=== PATIENT | female | born 1990 | race Caucasian/White ===

== ENCOUNTER 2016-08-01 18:11 | Emergency (ER) | payer OTHER ==
[~2016-08-01 18:11] MED LIST: AMOXIL500 MG PO; ATENOLOL25 M1 PO; CIPRO 500MG TA500 MG PO; CYCLOBENZAPRINE10 M1 PO; DICLEGIS 10 MG-1 TCP PO; ENDOCET 325 MG-1 TA1 PO; FERRALET 901 TAB PO; FERROUS GLUCON300 MG PO; KETOROLAC TROME10 M1 PO; KLOR-CON 1010 MEQ PO; MOTRIN 800MG T800 MG PO; PERCOCET 325 MG1 TA2 PO; PERCOCET 5-3251 EACH PO; PRENATA CHEWAB1 EACH PO; PRENATAL1 TA2 PO; REGLAN10 MG PO; XULANE PATCH1 EACH TOP; ZOFRAN 4 MG TABL4 MG PO; ZOFRAN4 M1 SL; ZOFRAN4 M2 PO; ZOFRAN4 M2 SL
[2016-08-01 19:18] LABS: ABSOLUTE BASOPHIL COUNT 0 /CUMM (0.0-0.2); ABSOLUTE EOSINOPHIL COUNT 0.1 /CUMM (0.0-0.7); ABSOLUTE GRANULOCYTE CT 5.8 /CUMM (1.4-6.5); ABSOLUTE LYMPH COUNT 1.3 /CUMM (1.2-3.4); ABSOLUTE MONOCYTE COUNT 0.5 /CUMM (0.10-0.60); BASOPHIL % 0.1 % (0.0-2.0); EOSINOPHIL % 0.7 % (0-5); GRANULOCYTE % 75.5 % (42.2-75.2); HEMATOCRIT 23.5 % (37-47); MEAN CORPUSCULAR HGB 23.5 PG (27.0-31.0); MEAN CORPUSCULAR HGB CONC 32.2 G/DL (33.0-37.0); MEAN CORPUSCULAR VOLUME 72.9 FL (81.0-99.0); MEAN PLATELET VOLUME 6.6 FL (7.4-10.4); PLATELET COUNT 297 /CUMM (130-400); RBC DISTRIBUTION WIDTH 16.8 % (11.5-14.5); RED BLOOD CELL CT 3.22 /CUMM (4.20-5.40); WHITE BLOOD CELL COUNT 7.7 /CUMM (4.8-10.8)
--- NOTE | 2016-08-01 19:46 | ED GI/GU/ABDOMINAL COMPLAINT ---
History of Present Illness General Chief Complaint: Abdominal Pain/Flank Pain Stated Complaint: LEFT FLANK PAIN, HX KIDNEY STONES Source: patient Exam Limitations: no limitations Vital Signs & Intake/Output Vital Signs & Intake/Output Vital Signs Date Time Temp Pulse Resp B/P Pulse O2 O2 Flow FiO2 Ox Delivery Rate 08/01 2132 98.2 88 16 109/70 98 Room Air Room Air 08/01 1820 97.8 98 17 109/70 98 Room Air Room Air Allergies Coded Allergies: NO KNOWN ALLERGIES (06/13/15) Triage Note: PT TO TRIAGE WITH LEFT FLANK PAIN FOR THE PAST FEW DAYS. PT SAW UROLOGIST YESTERDAY AND WAS TOLD SHE HAS A STONES IN THE TOP OF HER URETER. PT STATES PAIN IS NOW OUT OF CONTROL. PT ALSO STAtES SHE HAS PAIN TO HER GROIN STARTING THIS MORNING THAT IS INTERMITTENT. PT IS ALSO ABOTU 20 WEEKS , AND DUE November, A2. PT DENIES VAGINAL BLEEDING. DENIES CONTRACTIONS. CALLED [facility] NOW AND DR LANE STATES SHE WANTS HER TO BE SEEN HERE FIRST AND HAS FHT DONE. PT STATES SHE FEELS THE BABY MOVING. Triage Nurses Notes Reviewed? yes ? Y Is pt currently ? No HPI: This patient is a 25-year-old female who is approximately 20 weeks gestation who presented to the emergency department today for evaluation of left flank pain. Patient reported that approximately 4 weeks ago she had an ultrasound showing a kidney stone. Yesterday she saw Dr. Wahl who reported that, "the stone was at the top of the tube." The patient reported that she woke up this morning at bilateral groin pain. She reported that the pain has been worsening throughout the day. She does have left flank pain which is nonradiating and throbbing. It is intermittent and gets up to a 7 out of 10. The patient reported some nausea, but no vomiting. She denied any urinary burning, urgency, frequency, or blood in the urine. No chest pain, shortness of breath, fevers, chills. The patient denied any vaginal discharge or vaginal bleeding. The baby is moving normally. No contractions noted. No leakage of fluid. (SURINDER FONSECA,REYNA) Reconcile Medications Doxylamine/Pyridoxine HCl (Danna Edmonds 10-10 MG Tablet) 10 MG-10 MG TABLET. 2 TAB PO QPM N/V (Reported) Doxylamine/Pyridoxine HCl (Diclegis Dr 10-10 MG Tablet) 10 MG-10 MG TABLET.DR 1 TAB PO QAM N/V (Reported) Metoclopramide HCl (Reglan) 10 MG TABLET 1 TAB PO 4 TIMES/DAY GI (Reported) 30 minutes before meals and bedtime Ondansetron HCl 4 MG TABLET 1 TAB PO Q6P PRN N/V (Reported) Vit37/Iron/Folic Acid (Prenata Chewable Tablet) 1 EACH TAB.CHEW 1 TAB PO DAILY (Reported) (THOMAS GIL) Past History Travel History Traveled to [place] past 21 day No Medical History Any Pertinent Medical History? see below for history Neurological: NONE EENT: otitis media, TUBES IN EARS Cardiovascular: hypertension, TACHY Respiratory: NONE Gastrointestinal: NONE Hepatic: NONE Renal: nephrolithiasis, UTI Musculoskeletal: NONE Psychiatric: anxiety, depression Endocrine: NONE Blood Disorders: NONE Cancer(s): NONE INSPECTOR FUEL HOSE/Reproductive: A2 MISCARIAGE Surgical History Surgical History: ABORTIONS Psychosocial History Who do you live with Family What is your primary language Surinamese Tobacco Use: Never used Family History Hx Contributory? No (REYNA CADENA PA-C) Review of Systems Review of Systems Constitutional: Reports: no symptoms. EENTM: Reports: no symptoms. Respiratory: Reports: no symptoms. Cardiovascular: Reports: no symptoms. GI: Reports: see HPI. Genitourinary: Reports: no symptoms. Musculoskeletal: Reports: see HPI. Skin: Reports: no symptoms. Neurological/Psychological: Reports: no symptoms. All Other Systems: Reviewed and Negative (REYNA CADENA PA-C) Physical Exam Physical Exam Gastrointestinal: normal bowel sounds, soft, non-tender, no organomegaly, no rebound or guarding. No McBurney's point tenderness. Negative Rovsing sign. Negative Westfall sign. No masses appreciated. Nondistended Comments: Well-developed well-nourished person in no acute distress HEENT: Normal EENT exam, moist mucous membranes Neck: Supple Back: Left-sided CVA tenderness. No midline tenderness Cardiovascular: Regular rate and rhythm with no murmurs Respiratory: No respiratory distress. Breath sounds clear to auscultation bilaterally Extremity: Normal and Equal pulses Neuro: Alert oriented x3, motor sensory normal, cranial nerves II through XII grossly intact. Skin: No appreciable rash on exposed skin, skin is warm and dry. Psych: Mood and affect is normal, memory and judgment is normal. Core Measures ACS in differential dx? No Severe Sepsis Present: No Septic Shock Present: No (SURINDER FONSECA,REYNA) Progress Differential Diagnosis: appendicitis, biliary colic, bowel obstruction, colon cancer, cholecystitis, diverticulitis, ectopic , endometritis, gastritis, hepatitis, ischemic bowel, inflamm bowel dis, intrauterine , kidney stone, ovarian cyst, ovarian torsion, pancreatitis, PID/cervicitis, PUD/ GERD, perforated viscous, threatened AB, UTI/pyelo Plan of Care: Orders Procedure Date/time Status HUMAN BETA HCG TITRE 08/01 1904 Complete CULTURE,URINE 08/01 1856 Active URINALYSIS 08/01 1856 Complete COMPREHENSIVE METABOLIC PANEL 08/01 1856 Complete CBC WITHOUT DIFFERENTIAL 08/01 1856 Complete Laboratory Tests 08/01/161951: Urine Color STRAW, Urine Clarity CLEAR, Urine pH 7.0, Ur Specific [place] 1.015, Urine Protein NEG, Urine Ketones NEG, Urine Nitrite NEG, Urine Bilirubin NEG, Urine Urobilinogen 2.0 H, Ur Leukocyte Esterase NEG, Ur Microscopic EXAM NOT REQUIRED, Urine Hemoglobin NEG, Urine Glucose NEG 08/01/161908: Beta HCG, Quant Cancelled 08/01/161904: Anion Gap 10, Estimated GFR > 60, BUN/Creatinine Ratio 10.0, Glucose 72, Calcium 8.5, Total Bilirubin 0.4, AST 16, ALT 23, Alkaline Phosphatase 51, Total Protein 6.2 L, Albumin 3.4 L, Globulin 2.8, Albumin/Globulin Ratio 1.2, Beta HCG, Quant 33728.0, CBC w Diff NO MAN DIFF REQ, RBC 3.22 L, MCV 72.9 L, MCH 23.5 L , RDW 16.8 H, MPV 6.6 L, Gran % 75.5 H, Lymphocytes % 16.9 L, Monocytes % 6.8, Eosinophils % 0.7, Basophils % 0.1, Absolute Granulocytes 5.8, Absolute Lymphocytes 1.3, Absolute Monocytes 0.5, Absolute Eosinophils 0.1, Absolute Basophils 0, PUBS MCHC 32.2 L Microbiology 08/02 1951 URINE ROUT: Urine Culture - RECD Reevaluation the patient patient still had mild pain however declined any other pain medications and was Tylenol was administered. Patient had ultrasound findings consistent with intrauterine however no acute findings were noted otherwise. Discussed results with patient patient was strongly advised to follow-up with SITE PROJECT MANAGER and urology tomorrow. Upon discharge patient looks well no apparent distress and will comply with discharge instructions and had no questions. Discussed disposition plan with Dr. JAVIER who agrees (THOMAS GIL) Initial ED EKG: none Hand-Off Endorsed To: THOMAS GIL Endorsed Time: 1999 Pending: labs, ultrasound (SURINDER FONSECA,REYNA) Comments: PATIENT: OLGA GILLESPIE PRESENT AGE: 25 PATIENT ACCOUNT NO: [id number] : 88 LOCATION: [facility] ORDERING PHYSICIAN: REYNA CADENA PA-C SERVICE DATE: 08/01/16 EXAM TYPE: US - US-RENAL/KIDNEY EXAMINATION: US RETROPERITONEAL COMPLETE (RENAL) CLINICAL INFORMATION: Left flank pain.. COMPARISON: 06/27/2016. TECHNIQUE: Real-time imaging of the kidneys and bladder. FINDINGS: RIGHT KIDNEY: 9.1 x 4.8 x 5.7 cm (SAG x AP x TRV). The kidney is normal in size, contour, and echogenicity. Renal cortical thickness is normal. No hydronephrosis or focal parenchymal lesions. There is a 0.3 cm lower pole calculus, as seen on the prior ultrasound. LEFT KIDNEY: 10.9 x 5 x 5.6 cm (SAG x AP x TRV). The kidney is normal in size, contour, and echogenicity. Renal cortical thickness is normal. No calculi or focal parenchymal lesions. No hydronephrosis. BLADDER: Bladder is decompressed. Bilateral ureteral jets are not demonstrated. IMPRESSION: No hydronephrosis. Redemonstration of tiny nonobstructing right lower pole calculus. PATIENT: OLGA GILLESPIE PRESENT AGE: 25 PATIENT ACCOUNT NO: [id number] : 88 LOCATION: [facility] ORDERING PHYSICIAN: REYNA CADENA PA-C SERVICE DATE: 08/01/16 EXAM TYPE: US - US- VIABILITY EXAMINATION: ULTRASOUND PELVIC, , OB limited CLINICAL INFORMATION: Flank pain. . COMPARISON: None. TECHNIQUE: Transabdominal grayscale ultrasound Spectral Doppler and color Doppler exam was utilized. LMP: 03/02/2016. Gestational age 21 weeks 5 days. KALPESH 12/07/2016 FINDINGS: UTERUS: Single intrauterine gestation. There is motion and cardiac activity. heart rate 149 bpm. Lie is transverse. Placenta is anterior. biometrics: 1. Biparietal diameter. 4.91 cm. 20 weeks 6 days. 2. OFD. 6.1 cm. 20 weeks 3 days. 3. Head circumference. 18.14 cm. 20 weeks 4 days. 4. Abdominal circumference. 17.36 cm. 22 weeks 3 days. 5. Femur length. 3.52 cm. 21 weeks 1 day. Ultrasound gestational age by this study is 29 weeks 2 days. KALPESH 12/10/2016. Estimated weight 437 g +/- 60 4 g. LMP percentile: 39% Appropriate amount of amniotic fluid for gestational age. Cervical length 3.4 cm. ADNEXA: Ovary is not identified. No adnexal abnormality. Cul-de-sac: No Fluid IMPRESSION: Single intrauterine gestation with estimated gestational age by ultrasound 21 weeks 2 days. KALPESH 12/10/2016. (THOMAS GIL) Departure Departure Condition: Stable Referrals: DANIELITO BALDWIN DO (PCP/Family) Departure Forms: Customer Survey General Discharge Information (SURINDER FONSECA,REYNA) Departure Disposition: HOME OR SELF CARE Clinical Impression Primary Impression: Left flank pain Additional Instructions: As discussed if needed begin [id number] Tylenol for pain and inflammation. Follow-up tomorrow with your SITE PROJECT MANAGER and your urologist for further evaluation treatment. If symptoms worsen return to the emergency room (THOMAS GIL) PA/BELT MAKER Co-Sign Statement Statement: ED Attending supervision documentation- x I saw and evaluated the patient. I have also reviewed all the pertinent lab results and diagnostic results. I agree with the findings and the plan of care as documented in the PA's/BELT MAKER's documentation. [] I have reviewed the ED Record and agree with the PA's/BELT MAKER's documentation. [] Additions or exceptions (if any) to the PAs/BELT MAKER's note and plan are summarized below: [] (CONCEPCION COLBY,ALAN)
[2016-08-01] MEDS ORDERED: DICLEGIS DR 101 EACH PO ×2 (20:39)
[2016-08-01] MEDS ORDERED: ONDANSETRON HCL4 MG PO (20:40)
[2016-08-01] MEDS ORDERED: REGLAN10 M1 PO (20:40)
--- NOTE | 2016-08-01 20:53 | ULTRASOUND REPORT ---
EXAMINATION: US RETROPERITONEAL COMPLETE (RENAL) CLINICAL INFORMATION: Left flank pain.. COMPARISON: 06/27/2016. TECHNIQUE: Real-time imaging of the kidneys and bladder. FINDINGS: RIGHT KIDNEY: 9.1 x 4.8 x 5.7 cm (SAG x AP x TRV). The kidney is normal in size, contour, and echogenicity. Renal cortical thickness is normal. No hydronephrosis or focal parenchymal lesions. There is a 0.3 cm lower pole calculus, as seen on the prior ultrasound. LEFT KIDNEY: 10.9 x 5 x 5.6 cm (SAG x AP x TRV). The kidney is normal in size, contour, and echogenicity. Renal cortical thickness is normal. No calculi or focal parenchymal lesions. No hydronephrosis. BLADDER: Bladder is decompressed. Bilateral ureteral jets are not demonstrated. IMPRESSION: No hydronephrosis. Redemonstration of tiny nonobstructing right lower pole calculus.
--- NOTE | 2016-08-01 20:58 | ULTRASOUND REPORT ---
EXAMINATION: ULTRASOUND PELVIC, , OB limited CLINICAL INFORMATION: Flank pain. . COMPARISON: None. TECHNIQUE: Transabdominal grayscale ultrasound Spectral Doppler and color Doppler exam was utilized. LMP: 03/02/2016. Gestational age 21 weeks 5 days. KALPESH 12/07/2016 FINDINGS: UTERUS: Single intrauterine gestation. There is motion and cardiac activity. heart rate 149 bpm. Lie is transverse. Placenta is anterior. biometrics: 1. Biparietal diameter. 4.91 cm. 20 weeks 6 days. 2. OFD. 6.1 cm. 20 weeks 3 days. 3. Head circumference. 18.14 cm. 20 weeks 4 days. 4. Abdominal circumference. 17.36 cm. 22 weeks 3 days. 5. Femur length. 3.52 cm. 21 weeks 1 day. Ultrasound gestational age by this study is 29 weeks 2 days. KALPESH 12/10/2016. Estimated weight 437 g +/- 60 4 g. LMP percentile: 39% Appropriate amount of amniotic fluid for gestational age. Cervical length 3.4 cm. ADNEXA: Ovary is not identified. No adnexal abnormality. Cul-de-sac: No Fluid IMPRESSION: Single intrauterine gestation with estimated gestational age by ultrasound 21 weeks 2 days. KALPESH 12/10/2016.
[2016-08-01 21:32] VITALS: BP 109/70
== END 2016-08-01 21:33 ==
LOC: ERH 18:11
PROVIDERS: Physician Assistant
DX: O26.92 Pregnancy related conditions, unspecified, second trimester (principal); R10.32 Left lower quadrant pain
CPT/HCPCS: 76775; 81003; 87086; 96374; 96375; J0131; J2405

== ENCOUNTER 2016-08-03 12:00 | Emergency (ER) | payer OTHER ==
[~2016-08-03] VITALS: Ht 152.4 cm; Wt 64.9 kg
[~2016-08-03 12:00] MED LIST changes: +DICLEGIS DR 101 EACH PO; +ONDANSETRON HCL4 MG PO; +REGLAN10 M1 PO
--- NOTE | 2016-08-03 12:29 | ED GI/GU/ABDOMINAL COMPLAINT ---
History of Present Illness General Chief Complaint: Female Urogenital Problems Stated Complaint: 22 WEEKS PREG,?KIDNEY STONE,CAN'T URINATE Source: patient Exam Limitations: no limitations Allergies Coded Allergies: NO KNOWN ALLERGIES (06/13/15) Reconcile Medications Anusol Hc (Anusol-Hc) 25 MG SUPP.RECT 1 SUP RC BID HEMORRHOID Doxylamine/Pyridoxine HCl (Diclegis Dr 10-10 MG Tablet) 10 MG-10 MG TABLET.DR 2 TAB PO QPM N/V (Reported) Doxylamine/Pyridoxine HCl (Diclegis Dr 10-10 MG Tablet) 10 MG-10 MG TABLET.DR 1 TAB PO QAM N/V (Reported) Lidocaine (Recticare) 5 % CREAM..G. 1 YOVANI TOP BID PRN PAIN Metoclopramide HCl (Reglan) 10 MG TABLET 1 TAB PO 4 TIMES/DAY GI (Reported) 30 minutes before meals and bedtime Ondansetron HCl 4 MG TABLET 1 TAB PO Q6P PRN N/V (Reported) Vit37/Iron/Folic Acid (Prenata Chewable Tablet) 1 EACH TAB.CHEW 1 TAB PO DAILY (Reported) Triage Note: TRIAGE: 25 Y/O FEMALE PRESENTS, 22 WEEKS . - C/O KIDNEYS LAST WEEK. NOW C/O HEMORRHOIDS. DIFFICULTY URINATING. CONTACTED CHILDBIRTH RN EDDIE GAYLE TO BE SEEN IN EMERGENCY DEPARTMENT. PATIENT DENIES VAGINAL BLEEDING, ABDOMINAL CRAMPING. REPORTS + MOVEMENT CONTINUES. [facility] HAS REPORTED TO CONTACT THEIR DEPARTMENT FOR HEART TONES. Triage Nurses Notes Reviewed? yes ? Y Is pt currently ? No HPI: This patient is a 25-year-old female who presented to the emergency department today for evaluation of multiple complaints. The patient reported that yesterday she began having pain and pressure in her rectum. The patient reported that she has a history of hemorrhoids and feels like this pain is the same. The pain is worse with certain movements and when she is sitting down. The fingertips are 10 out of 10 and is throbbing. The pain is nonradiating and constant since onset. The patient also reported that she is feeling pressure on her bladder. She reported that she feels like she has to urinate but has been having difficulty doing so. She reported that the only time she can urinate is when she is sitting in a bath. The patient denied any urinary burning, urgency, frequency, or blood in the urine. She denied any back pain or flank pain. She reported that she has been nauseous and vomiting which she attributes to the pain. No abdominal pain, chest pain, difficulty breathing, fevers, or chills. (REYNA CADENA PA-C) Vital Signs & Intake/Output Vital Signs & Intake/Output Vital Signs Date Time Temp Pulse Resp B/P Pulse O2 O2 Flow FiO2 Ox Delivery Rate 08/03 1346 96.0 94 20 100/55 96 Room Air 03 1205 97.4 112 18 121/77 100 Room Air Room Air ED Intake and Output 08/04 0000 08/03 1200 Intake Total Output Total Balance Patient 143 lb Weight Past History Travel History Traveled to [place] past 21 day No Medical History Any Pertinent Medical History? see below for history Neurological: NONE EENT: otitis media, TUBES IN EARS Cardiovascular: hypertension, TACHY Respiratory: NONE Gastrointestinal: NONE Hepatic: NONE Renal: nephrolithiasis, UTI Musculoskeletal: NONE Psychiatric: anxiety, depression Endocrine: NONE Blood Disorders: NONE Cancer(s): NONE SURGERY MANAGER/Reproductive: A2 MISCARIAGE Surgical History Surgical History: ABORTIONS Psychosocial History Who do you live with Family What is your primary language Bengali Tobacco Use: Current Daily Use Daily Tobacco Use Amount/Type: => 5 Cigarettes daily ETOH Use: denies use Illicit Drug Use: denies illicit drug use Family History Hx Contributory? No (REYNA CADENA PA-C) Review of Systems Review of Systems Constitutional: Reports: no symptoms. EENTM: Reports: no symptoms. Respiratory: Reports: no symptoms. Cardiovascular: Reports: no symptoms. GI: Reports: see HPI. Genitourinary: Reports: see HPI. Musculoskeletal: Reports: no symptoms. Skin: Reports: no symptoms. Neurological/Psychological: Reports: no symptoms. All Other Systems: Reviewed and Negative (REYNA CADENA PA-C) Physical Exam Physical Exam Gastrointestinal: GRAVID. UTERUS PALPABLE APPROXIMATELY 1 CM ABOVE THE UMBILICUS. NONTENDER Comments: Well-developed well-nourished person who is tearful HEENT: Normal EENT exam, moist mucous membranes Back: Normal gait. No CVA tenderness Respiratory: Speaking sentences Rectal: External, nonthrombosed hemorrhoid at the 5 o'clock position Extremity: Normal equal pulses Neuro: Alert oriented x3, cranial nerves II through XII grossly intact. Skin: No appreciable rash on exposed skin, skin is warm and dry. Psych: Mood and affect is normal, memory and judgment is normal. Core Measures ACS in differential dx? No Severe Sepsis Present: No Septic Shock Present: No (REYNA CADENA PA-C) Progress Differential Diagnosis: ectopic , endometritis, hemorrhoids, inflamm bowel dis, intrauterine , kidney stone, PID/cervicitis, threatened AB, UTI/pyelo Initial ED EKG: none Comments: 08/03/2016 12:44:26 PM: [facility] with the patient's bedside to evaluate heart tones. heart rate in the 140s. Patient is currently attempting to urinate on her own. Bladder scanner with variable results between 200 AND 110. I evaluated this patient 2 days ago and obtained a viability ultrasound which was normal as well as a renal ultrasound which was unremarkable. All blood work was stable at that time. Discussed this patient with Dr. JAVIER who is in agreement with the plan to obtain a urine sample from this patient and manage her symptomatically at this time. 08/03/2016 12:54:41 PM: Patient declined straight catheterization and was able to void on her own. Urinalysis sent to the lab. (REYNA CADENA PA-C) Plan of Care: Orders Procedure Date/time Status CULTURE,URINE 08/03 1254 Active URINALYSIS 08/03 1248 Complete Laboratory Tests 08/03/16 1249: Urinalysis LIGHT H, Urine Color YEL, Urine Clarity HAZY H, Urine pH 7.5, Ur Specific [place] 1.015, Urine Protein NEG, Urine Ketones NEG, Urine Nitrite NEG, Urine Bilirubin NEG, Urine Urobilinogen 1.0, Ur Leukocyte Esterase NEG, Ur Microscopic SEDIMENT EXAMINED, Urine RBC 1-3, Urine WBC 1-3 H, Ur Epithelial Cells MOD H, Urine Bacteria MOD H, Granular Casts RARE H, Urine Mucus RARE, Urine Hemoglobin TRACE-INTACT, Urine Glucose NEG Microbiology 08/03 1323 URINE ROUT: Urine Culture - RES Departure Departure Disposition: HOME OR SELF CARE Condition: Stable Clinical Impression Primary Impression: Hemorrhoid Qualifiers: Hemorrhoid type: perianal venous thrombosis Qualified Code: K64.5 - Perianal venous thrombosis Referrals: DANIELITO BALDWIN DO (PCP/Family) Additional Instructions: Use topical medication as directed for pain. Use steroid suppository as directed. Use sitz bath. Use over the counter Dulcolax. Please follow-up with your BRIDGE CRANE OPERATOR. Return for any worsening symptoms. Departure Forms: Customer Survey General Discharge Information Prescriptions: Current Visit Scripts Anusol Hc (Anusol-Hc) 1 SUP RC BID #28 SUP Lidocaine (Recticare) 1 YOVANI TOP BID PRN PAIN #1 BOT (SURINDER FONSECA,REYNA) PA/ACCOUNT LIAISON Co-Sign Statement Statement: ED Attending supervision documentation- x I saw and evaluated the patient. I have also reviewed all the pertinent lab results and diagnostic results. I agree with the findings and the plan of care as documented in the PA's/ACCOUNT LIAISON's documentation. [] I have reviewed the ED Record and agree with the PA's/ACCOUNT LIAISON's documentation. [] Additions or exceptions (if any) to the PAs/ACCOUNT LIAISON's note and plan are summarized below: [] (CONCEPCION COLBY,ALAN)
[2016-08-03] MEDS ORDERED: LIDOVEX60 GM TOP (13:40)
[2016-08-03] MEDS ORDERED: HYDROCORTISONE25 M2 RC (13:40)
[2016-08-03 13:46] VITALS: BP 100/55
[2016-08-03] MEDS ORDERED: ANUSOL-HC25 M1 RC (14:07)
[2016-08-03] MEDS ORDERED: RECTICARE15 GM TOP (14:07)
== END 2016-08-03 14:11 ==
LOC: ERH 12:00
DX: O22.42 Hemorrhoids in pregnancy, second trimester (principal); Z3A.22 22 weeks gestation of pregnancy
CPT/HCPCS: 81001; 87086; 87088; J3101

== ENCOUNTER 2016-10-29 14:44 | Inpatient (IN) | payer OTHER ==
[~2016-10-29] VITALS: Ht 152.4 cm; Wt 70.8 kg
[~2016-10-29 14:44] MED LIST changes: +ANUSOL-HC25 M1 RC; +HYDROCORTISONE25 M2 RC; +LIDOVEX60 GM TOP; +RECTICARE15 GM TOP
--- NOTE | 2016-10-29 14:53 | NUR ---
SENT BY DOMINGO, C/O CHEST PAIN SINCE LAST PM WITH SOB. 36 WEEKS WEEKS , (GR 5, P3, AB2) STATES SHE HAS HX OF TACHYCARDIA, LAST WAS DXD WITH ENLARGED HEART WITH FLUID.
--- NOTE | 2016-10-29 14:58 | NUR ---
PER [facility], PT WAS CLEARED BY DR. DOMINGO DECKER.
--- NOTE | 2016-10-29 16:02 | NUR ---
APPRECIATE TRIAGE NOTE. PT AMBULATORY TO ROOM 19. PA STUDENT AT BEDSIDE FOR EVAL.
[2016-10-29] MEDS ORDERED: FERRALET 90 TA1 EACH PO (16:53)
[2016-10-29] MEDS ORDERED: LIDOCAINE1 EACH TOP (16:53)
[2016-10-29 16:59] LABS: ABSOLUTE BASOPHIL COUNT 0 /CUMM (0.0-0.2); ABSOLUTE EOSINOPHIL COUNT 0 /CUMM (0.0-0.7); ABSOLUTE GRANULOCYTE CT 11.3 /CUMM (1.4-6.5); ABSOLUTE LYMPH COUNT 1.8 /CUMM (1.2-3.4); ABSOLUTE MONOCYTE COUNT 0.8 /CUMM (0.10-0.60); BASOPHIL % 0.1 % (0.0-2.0); EOSINOPHIL % 0 % (0-5); GRANULOCYTE % 80.9 % (42.2-75.2); HEMATOCRIT 22.4 % (37-47); MEAN CORPUSCULAR HGB 21.6 PG (27.0-31.0); MEAN CORPUSCULAR HGB CONC 30.9 G/DL (33.0-37.0); MEAN CORPUSCULAR VOLUME 69.9 FL (81.0-99.0); PLATELET COUNT 324 /CUMM (130-400); RBC DISTRIBUTION WIDTH 19.4 % (11.5-14.5); RED BLOOD CELL CT 3.21 /CUMM (4.20-5.40)
--- NOTE | 2016-10-29 17:05 | NUR ---
CRITICAL TEST RESULTS [id number] OLGA GILLESPIE 25 F TESTS AND RESULTS: HEMOGLOBIN 6.9, HEMOTOCRIT 22.4 Results received and read back by: KSENIA PARRA Results received date and time: 10/29/16 1708 The following provider was notified of the results, and read the results back: MILTON LOCK [id number] Notified date and time: 10/29/16 at 1708
--- NOTE | 2016-10-29 17:15 | NUR ---
P[facility] SENT. US AT BEDSIDE AT THIS TIME.
--- NOTE | 2016-10-29 18:05 | NUR ---
PT TO BEDSIDE COMMODE URINE TRIO SENT
--- NOTE | 2016-10-29 18:10 | ULTRASOUND REPORT ---
EXAMINATION: US TRIPLEX OF LOWER EXTREMITIES, BILATERAL CLINICAL INFORMATION: Calf pain. Chest pain. Rule out DVT. COMPARISON: None TECHNIQUE: Color-flow triplex imaging with spectral analysis and compression Doppler were performed on the lower extremities. FINDINGS: Respiratory variation, normal compression and augmented flow are noted throughout the lower extremities. The visualized common femoral vein, superficial femoral vein, profunda femoral vein, popliteal vein and midcalf peroneal and posterior tibial venous segments show no evidence of deep venous thrombosis. There is no Emery's cyst. IMPRESSION: Normal triplex scan without evidence of deep venous thrombosis involving the lower extremities.
--- NOTE | 2016-10-29 18:25 | ED CARDIAC/CP/PALPITATIONS ---
History of Present Illness General Chief Complaint: General Adult Stated Complaint: CHEST TIGHTNESS, SHOOTING PAIN IN LEGS, 33WKS PREG Source: patient Exam Limitations: no limitations Vital Signs & Intake/Output Vital Signs & Intake/Output Vital Signs Date Time Temp Pulse Resp B/P B/P Pulse O2 O2 Flow FiO2 Mean Ox Delivery Rate 10/29 2240 97.6 92 20 116/54 99 Room Air 10/29 2123 97.5 92 18 125/77 97 Room Air Room Air 10/29 1926 97.8 94 20 116/57 100 Room Air 10/29 1755 97.7 98 20 129/58 99 Room Air 10/29 1659 99 Room Air 10/29 1454 98.1 108 20 123/81 99 Room Air Allergies Coded Allergies: NO KNOWN ALLERGIES (06/13/15) Reconcile Medications Doxylamine/Pyridoxine HCl (Diclegis Dr 10-10 MG Tablet) 10 MG-10 MG TABLET.DR 2 TAB PO QPM N/V (Reported) Doxylamine/Pyridoxine HCl (Diclegis Dr 10-10 MG Tablet) 10 MG-10 MG TABLET.DR 1 TAB PO QAM N/V (Reported) Iron Carb,Gl/FA/B12/C/Docusate (Ferralet 90 Tablet) 90 MG-1 MG-12 MCG-120 MG-50 MG TABLET 1 TAB PO DAILY SUPPLEMENT (Reported) Lidocaine 5 % ADH..PATCH 1 PAT TOP PRN PAIN (Reported) Ondansetron HCl 4 MG TABLET 1 TAB PO Q6P PRN N/V (Reported) Vit37/Iron/Folic Acid (P[place]ata Chewable Tablet) 1 EACH TAB.CHEW 1 TAB PO DAILY (Reported) Triage Note: SENT BY DOMINGO, C/O CHEST PAIN SINCE LAST PM WITH SOB. 36 WEEKS WEEKS , (GR 5, P3, AB2) STATES SHE HAS HX OF TACHYCARDIA LAST WAS DXD WITH ENLARGED HEART WITH FLUID. Triage Nurses Notes Reviewed? yes Onset: Abrupt Duration: day(s): (2), intermittent Timing: recent history Quality/Severity: tightness Activities at Onset: none : Yes Patient currently breastfeeds: No HPI: 25-year-old female 33 weeks comes into emergency room with complaints of chest tightness has been going on for the past 2 days. Some associated shortness of breath. Patient was here over the weekend for abdominal contractions. Patient was given IV fluids. The contractions resolved. Patient reports some left-sided calf pain. Denies any cough. Denies any other associated symptoms. (CURTIS CHARLES) Past History Travel History Traveled to [place] past 21 day No Medical History Any Pertinent Medical History? see below for history Neurological: NONE EENT: otitis media, TUBES IN EARS Cardiovascular: hypertension, TACHY Respiratory: NONE Gastrointestinal: NONE Hepatic: NONE Renal: nephrolithiasis, UTI Musculoskeletal: NONE Psychiatric: anxiety, depression Endocrine: NONE Blood Disorders: NONE Cancer(s): NONE FIREMAN/Reproductive: A2 MISCARIAGE Surgical History Surgical History: ABORTIONS Psychosocial History Who do you live with Family What is your primary language Swiss Tobacco Use: Current Daily Use Daily Tobacco Use Amount/Type: =< 4 Cigarettes daily ETOH Use: denies use Family History Hx Contributory? No (CURTIS CHARLES) Review of Systems Review of Systems Constitutional: Reports: no symptoms. EENTM: Reports: no symptoms. Respiratory: Reports: see HPI. Cardiovascular: Reports: see HPI. GI: Reports: no symptoms. Genitourinary: Reports: no symptoms. Musculoskeletal: Reports: no symptoms. Skin: Reports: no symptoms. Neurological/Psychological: Reports: no symptoms. Hematologic/Endocrine: Reports: no symptoms. Immunologic/Allergic: Reports: no symptoms. All Other Systems: Reviewed and Negative (CURTIS CHARLES) Physical Exam Physical Exam General Appearance: well developed/nourished, no apparent distress, alert, awake Head: atraumatic, normal appearance Eyes: Bilateral: normal appearance, EOMI. Ears, Nose, Throat: normal pharynx, normal ENT inspection, hearing grossly normal Neck: normal inspection Respiratory: normal breath sounds, no respiratory distress Cardiovascular: regular rate/rhythm, tachycardia Back: normal inspection Extremities: normal inspection, normal range of motion, no edema Neurologic/Psych: awake, alert Skin: intact, normal color Core Measures ACS in differential dx? Yes Severe Sepsis Present: No Septic Shock Present: No (CURTIS CHARLES) Progress Differential Diagnosis: AMI, aortic dissection, atrial fibrillation, cholecystitis, costochondritis, hypovolemia, hyperventilation, intracranial hemorrhage, musculoskeletal pain, myocarditis, pericarditis, pneumothorax, pulmonary embolism, PUD/GERD, PVCs/PACs, respiratory failure, WPW syndrome Plan of Care: Orders Procedure Date/time Status Regular Diet 10/30 B Active CBC WITHOUT DIFFERENTIAL 10/30 0600 Active TROPONIN LEVEL 10/29 2205 Active EKG 10/29 2205 Active Pathway - chart 10/29 2204 Active BLOOD PRODUCT PICKUP 10/29 2144 Active OXYGEN SETUP (GEN) 10/29 2125 Active Saline Lock 10/29 2125 Active Misc Message 10/29 2125 Active ED Holding Orders 10/29 2125 Active Vital Signs 10/29 2125 Active Activity/Ambulation 10/29 2125 Active Code Status 10/29 2125 Active Patient Data 10/29 2054 Active Admit to inpatient 10/29 2045 Active BLOOD PRODUCT PICKUP 10/29 185 Active LEUKOCYTE POOR (PACKED CELLS) 10/29 181 Active URINALYSIS 10/29 1756 Complete TYPE & SCREEN (NOT X-MATCH) 10/29 1707 Active Intake & Output 10/29 1704 Active Add-on Test (ER Only) 10/29 1644 Active THYROID STIMULATING HORMONE 10/29 1644 Complete TOTAL IRON BINDING CAPACITY 10/29 1644 Complete RETICULOCYTE COUNT 10/29 1644 Complete PROTHROMBIN TIME 10/29 1644 Complete FREE T4 10/29 1644 Complete FERRITIN 10/29 1644 Complete SERUM IRON 10/29 1644 Complete D-DIMER 10/29 1644 Complete TROPONIN LEVEL 10/29 1633 Complete COMPREHENSIVE METABOLIC PANEL 10/29 1633 Complete CBC WITHOUT DIFFERENTIAL 10/29 1633 Complete EKG 10/29 1453 Active House Staff 10/29 UNK Active Lab Add-on Test 10/29 UNK Active VTE Mechanical Prophylaxis 10/29 UNK Active Vital Signs 10/29 UNK Active Precautions 10/29 UNK Active Hemoccult 10/29 UNK Active Current Medications Sig/Izabel Start time Last Medication Dose Stop Time Status Admin Omeprazole 40 MG DAILY AC 10/30 0700 AC (Prilosec) Doxylamine Succinate/ 1 TAB Q6P PRN 10/29 2330 AC Pyridoxine (Diclegis) Laboratory Tests 10/29/16 2317: Troponin I Pending 10/29/16 2213: PT Cancelled, INR Cancelled 10/29/16 1800: Urinalysis LIGHT H, Urine Color STRAW, Urine Clarity CLEAR, Urine pH 7.0, Ur Specific [place] 1.010, Urine Protein NEG, Urine Ketones NEG, Urine Nitrite NEG, Urine Bilirubin NEG, Urine Urobilinogen 1.0, Ur Leukocyte Esterase TRACE H, Ur Microscopic SEDIMENT EXAMINED, Urine RBC RARE, Urine WBC RARE, Ur Epithelial Cells FEW, Urine Bacteria FEW H, Urine Hemoglobin NEG, Urine Glucose NEG 10/29/16 1644: Anion Gap 9, Estimated GFR > 60, BUN/Creatinine Ratio 8.0, Glucose 78, Calcium 8.6, Iron 12 L, TIBC 564 H, Ferritin 4.2 L, Total Bilirubin 0.4, AST 16, ALT 23, Alkaline Phosphatase 98, Troponin I < 0.01, Total Protein 6.3, Albumin 3.4 L, Globulin 2.9, Albumin/Globulin Ratio 1.2, TSH 0.736, Free T4 1.07, PT 10.5, INR 1.00, D-Dimer 539 H, CBC w Diff NO MAN DIFF REQ, RBC 3.21 L, MCV 69.9 L, MCH 21.6 L, RDW 19.4 H, MPV 7.0 L, Gran % 80.9 H, Lymphocytes % 12.9 L, Monocytes % 6.1, Eosinophils % 0, Basophils % 0.1, Absolute Granulocytes 11.3 H , Absolute Lymphocytes 1.8, Absolute Monocytes 0.8 H, Absolute Eosinophils 0, Absolute Basophils 0, PUBS MCHC 30.9 L, Retic Count 5.04 H Diagnostic Imaging: Viewed by Me: CT Scan, Ultrasound. Discussed w/RAD: CT Scan, Ultrasound. Radiology Impression: SERVICE DATE: 10/29/16 EXAM TYPE: US - US-EXT BILAT VENOUS DOPPLER EXAMINATION: US TRIPLEX OF LOWER EXTREMITIES, BILATERAL CLINICAL INFORMATION: Calf pain. Chest pain. Rule out DVT. COMPARISON: None TECHNIQUE: Color-flow triplex imaging with spectral analysis and compression Doppler were performed on the lower extremities. FINDINGS: Respiratory variation, normal compression and augmented flow are noted throughout the lower extremities. The visualized common femoral vein, superficial femoral vein, profunda femoral vein, popliteal vein and midcalf peroneal and posterior tibial venous segments show no evidence of deep venous thrombosis. There is no Emery's cyst. IMPRESSION: Normal triplex scan without evidence of deep venous thrombosis involving the lower extremities. DICTATED BY: MIROSLAVA PURVIS MD DATE/TIME DICTATED:10/29/161805 VALVE PIPE IRRIGATOR:TEVIN DATE/TIME TRANSCRIBED:10/29/161805, EXAM TYPE: CAT - CTA CHEST-PULMONARY EMBOLISM EXAMINATION: CT ANGIOGRAM OF THE CHEST WITH AND WITHOUT CONTRAST (CT PULMONARY ANGIOGRAM FOR PE) CLINICAL INFORMATION: Rule out pulmonary embolism. Shortness of breath. 33 weeks . COMPARISON: None TECHNIQUE: Prior to contrast administration, noncontrast localization images were obtained. Subsequently, multidetector volumetric imaging was performed from the thoracic inlet to below the diaphragms following the administration of 70 mL Optiray 350 intravenous contrast. No contrast reaction reported. Sagittal, coronal, and MIP oblique sagittal reformatted images were obtained on the CT workstation, uploaded to PACS, and reviewed. Total exam dose-length product 336.6 mGy-cm. FINDINGS: QUALITY OF STUDY/CONTRAST BOLUS: Satisfactory PULMONARY ARTERIES: No central or main segmental pulmonary emboli. Some of the subsegmental pulmonary artery branches do not fully opacify and are therefore limited for assessment. THORACIC AORTA: No aneurysm or dissection. LUNG: No airspace consolidation is visible. There are no emphysematous changes or bronchiectasis. PLEURA: No pleural effusion or pneumothorax. MEDIASTINUM: Normal heart size. No pericardial effusion. No hilar or mediastinal lymphadenopathy. No evidence of septal bowing or right heart strain. CHEST WALL/AXILLA: No axillary or internal mammary lymphadenopathy. OSSEOUS STRUCTURES: No acute or suspicious osseous abnormality. UPPER ABDOMEN: Unremarkable. No reflux of contrast into the hepatic veins to suggest elevated right heart pressures. IMPRESSION: No central or main pulmonary embolism identified with limited assessment of the subsegmental pulmonary arterial branches. No airspace disease. No acute process identified. VTE: negative. DICTATED BY: MIROSLAVA PURVIS MD DATE/TIME DICTATED: 10/29/161929 VALVE PIPE IRRIGATOR:TEVIN DATE/TIME TRANSCRIBED:10/29/161929 Initial ED EKG: normal intervals, normal p-waves, normal sinus rhythm, rate (103 ), nonspecific ST T wave chg Comments: 10/29/2016 6:56:[address] Juarez on the phone. Discussed plan of care. She agrees with plan of care proceeding with the CT angiogram of chest to rule out pulmonary embolism. She will be transfused 2 units of blood. She'll be admitted to the hospital. Patient has been seen and evaluated by Dr. melgar. She has been taking part actively in the patient's plan of care. (CURTIS CHARLES) Departure Departure Disposition: STILL A PATIENT Condition: Stable Clinical Impression Primary Impression: Acute electrocardiogram changes Secondary Impressions: Symptomatic anemia Referrals: DANIELITO BALDWIN DO (PCP/Family) Departure Forms: Customer Survey General Discharge Information (CURTIS CHARLES) PA/RACE RELATIONS PROFESSOR Co-Sign Statement Statement: ED Attending supervision documentation- [X] I saw and evaluated the patient. I have also reviewed all the pertinent lab results and diagnostic results. I agree with the findings and the plan of care as documented in the PA's/RACE RELATIONS PROFESSOR's documentation. [X] I have reviewed the ED Record and agree with the PA's/RACE RELATIONS PROFESSOR's documentation. [] Additions or exceptions (if any) to the PAs/RACE RELATIONS PROFESSOR's note and plan are summarized below: [] (FRANCINE COLBY,GAIL) Admission Note Spoke With: OLIMPIA JACKSON MD Documentation of Exam: Documentation of any treatments & extenuating circumstances including Concerns Regarding Discharge (functional status, medication knowledge or non-compliance, living conditions, etc.) that warrant an admission rather than observation: [ Patient to be admitted to telemetry service with OB consultation. Patient has EKG changes and chest pain. Patient will require serial enzymes and an echocardiogram.] PA/RACE RELATIONS PROFESSOR Co-Sign Statement Statement: ED Attending supervision documentation- [] I saw and evaluated the patient. I have also reviewed all the pertinent lab results and diagnostic results. I agree with the findings and the plan of care as documented in the PA's/RACE RELATIONS PROFESSOR's documentation. [] I have reviewed the ED Record and agree with the PA's/RACE RELATIONS PROFESSOR's documentation. [] Additions or exceptions (if any) to the PAs/RACE RELATIONS PROFESSOR's note and plan are summarized below: [] (JUDSON COLBY,MIROSLAVA Orourke) Critical Care Note Critical Care Note Critical Care Time: 30-74 min (40) (CURTIS CHARLES)
--- NOTE | 2016-10-29 19:10 | NUR ---
PT TO CAT SCAN VIA STRETCHER AT THIS TIME.
--- NOTE | 2016-10-29 19:40 | CT SCAN REPORT ---
EXAMINATION: CT ANGIOGRAM OF THE CHEST WITH AND WITHOUT CONTRAST (CT PULMONARY ANGIOGRAM FOR PE) CLINICAL INFORMATION: Rule out pulmonary embolism. Shortness of breath. 33 weeks . COMPARISON: None TECHNIQUE: Prior to contrast administration, noncontrast localization images were obtained. Subsequently, multidetector volumetric imaging was performed from the thoracic inlet to below the diaphragms following the administration of 70 mL Optiray 350 intravenous contrast. No contrast reaction reported. Sagittal, coronal, and MIP oblique sagittal reformatted images were obtained on the CT workstation, uploaded to PACS, and reviewed. Total exam dose-length product 336.6 mGy-cm. FINDINGS: QUALITY OF STUDY/CONTRAST BOLUS: Satisfactory PULMONARY ARTERIES: No central or main segmental pulmonary emboli. Some of the subsegmental pulmonary artery branches do not fully opacify and are therefore limited for assessment. THORACIC AORTA: No aneurysm or dissection. LUNG: No airspace consolidation is visible. There are no emphysematous changes or bronchiectasis. PLEURA: No pleural effusion or pneumothorax. MEDIASTINUM: Normal heart size. No pericardial effusion. No hilar or mediastinal lymphadenopathy. No evidence of septal bowing or right heart strain. CHEST WALL/AXILLA: No axillary or internal mammary lymphadenopathy. OSSEOUS STRUCTURES: No acute or suspicious osseous abnormality. UPPER ABDOMEN: Unremarkable. No reflux of contrast into the hepatic veins to suggest elevated right heart pressures. IMPRESSION: No central or main pulmonary embolism identified with limited assessment of the subsegmental pulmonary arterial branches. No airspace disease. No acute process identified. VTE: negative.
--- NOTE | 2016-10-29 19:52 | NUR ---
PRBC'S HUNG AT 1930. PT TOLERATING TRANSFUSION AT THIS TIME.
--- NOTE | 2016-10-29 21:46 | NUR ---
FIRST UNIT OF PRBC FINISHED AT THIS TIME. PT AMBULATORY TO BATHROOM WITH THIS RN WITH NO DIFFICULTIES. DR. Rey TO BEDSIDE FOR EVAL AT THIS TIME.
--- NOTE | 2016-10-29 21:49 | NUR ---
HOUSE STAFF TO BEDSIDE FOR EVAL.
--- NOTE | 2016-10-29 21:57 | History & Physical ---
NATE COLBY,JP 10/29/16 2152: General Information and [facility] MD Statement: I have seen and personally examined OLGA GILLESPIE and documented this H&P. The patient is a 25 year old F who presented with a patient stated chief complaint of [chest pain]. Source of Information: patient, family, old records Exam Limitations: no limitations History of Present Illness: This is a 25-year-old female [id number], who is currently 33 weeks and with past medical history significant for hypertension in previous , sciataca, tachycardia, UTI, depression, anxiety, tympanostomy tubes, and nephrolithiasis who comes in for chief complaint of chest pain. Patient states that she's had a chest tightening sensation for the past 2 days. She describes the pain as a chest tightness with shooting pain radiating toward her head and down her lower extremities. The pain kept her up all night and between midsternal and epigastric. She rates the pain at its worst at a 10 out of 10. Denies any exertional component but she does have some shortness of breath and palpitations. Patient states the palpitations are intermittent and have been happening over the last few days. She states that during her previous she was found to have hypertension towards the end and was treated with medications. Denies any hypertension history outside of . In the morning patient called her showcase maker Dr. Juarez and was asked to see her in the office and subsequently referred to come to ED. Patient does not recall a diagnosis of preeclampsia, however she did state that someone mentioned that she had hyperthyroidism, but she cannot provide any further details as of this time. Patient does endorse some subjective difficulty of breathing, no loss of consciousness, no headache, no constipation, no diarrhea, no fever, no chills, no change in bladder or bowel movement, and no abdominal pain. Patient states that she continues to feel normal movement , she does have some associated nausea and vomiting. She also continues to experience sciatica. Patient has had previous recent ED visits: August 25 for evaluation of nephrolithiasis August 03 for evaluation of hemorrhoids and difficulty urinating Patient sees Dr. Juarez for LEATHER TACKER and Dr. Justice for cardiology Allergies/Medications Allergies: Coded Allergies: NO KNOWN ALLERGIES (06/13/15) Home Med list Doxylamine/Pyridoxine HCl (Danna Edmonds 10-10 MG Tablet) 10 MG-10 MG TABLET. 2 TAB PO QPM N/V (Reported) Doxylamine/Pyridoxine HCl (Danna Edmonds 10-10 MG Tablet) 10 MG-10 MG TABLET.DR 1 TAB PO QAM N/V (Reported) Iron Carb,Gl/FA/B12/C/Docusate (Ferralet 90 Tablet) 90 MG-1 MG-12 MCG-120 MG-50 MG TABLET 1 TAB PO DAILY SUPPLEMENT (Reported) Lidocaine 5 % ADH..PATCH 1 PAT TOP PRN PAIN (Reported) Ondansetron HCl 4 MG TABLET 1 TAB PO Q6P PRN N/V (Reported) Vit37/Iron/Folic Acid (Prenata Chewable Tablet) 1 EACH TAB.CHEW 1 TAB PO DAILY (Reported) Compliance With Home Meds: UNKNOWN Past History Travel History Traveled to [place] past 21 day No Medical History Neurological: NONE EENT: otitis media, TUBES IN EARS Cardiovascular: hypertension, TACHY Respiratory: NONE Gastrointestinal: NONE Hepatic: NONE Renal: nephrolithiasis, UTI Musculoskeletal: NONE Psychiatric: anxiety, depression Endocrine: NONE Blood Disorders: NONE Cancer(s): NONE CERTIFIED CODING SPECIALIST/Reproductive: A2 MISCARIAGE Surgical History Surgical History: ABORTIONS Past Family/Social History Psychosocial History ETOH Use: denies use Functional Ability ADLs Independent: dressing, eating, toileting, bathing. Ambulation: independent IADLs Independent: shopping, housework, finances, food prep, telephone, transportation , medication admin. Review of Systems Review of Systems Constitutional: Denies: chills, diaphoresis, fever, malaise, weakness. EENTM: Denies: blurred vision, double vision, visual changes. Cardiovascular: Reports: chest pain, palpitations. Denies: edema, orthopena, peripheral edema. Respiratory: Reports: short of breath. GI: Reports: no symptoms. Genitourinary: Reports: no symptoms. Musculoskeletal: Reports: back pain. Skin: Reports: no symptoms. Exam & Diagnostic Data Last 24 Hrs of Vital Signs/I&O Vital Signs Date Time Temp Pulse Resp B/P B/P Pulse O2 O2 Flow FiO2 Mean Ox Delivery Rate 10/30 0207 97.3 88 18 110/60 98 10/30 0114 97.3 88 18 110/60 98 10/29 2240 97.6 92 20 116/54 99 Room Air 10/29 2123 97.5 92 18 125/77 97 Room Air Room Air 10/29 1926 97.8 94 20 116/57 100 Room Air 10/29 1755 97.7 98 20 129/58 99 Room Air 10/29 1659 99 Room Air 10/29 1454 98.1 108 20 123/81 99 Room Air Intake & Output 10/30 0800 10/30 0000 10/29 1600 Intake Total 1000 Output Total 400 Balance 600 Intake, IV 1000 Output, Urine 400 Patient 70.76 kg 70.76 kg 70.76 kg Weight Weight Reported by Patient Reported by Patient Measurement Method Physical Exam General Appearance Alert, Oriented X3, Cooperative, No Acute Distress Skin No Significant Lesion HEENT Atraumatic, PERRLA, EOMI, Mucous Membr. moist/pink Neck Supple, No JVD Cardiovascular Regular Rate, Normal S1, Normal S2, No Murmurs Lungs Clear to Auscultation, Normal Air Movement Abdomen gravid abdomen with striae no tenderness to palpation no guarding Extremities No Edema Last 24 Hrs of Labs/Lg: Laboratory Tests 10/29/16 2317: Troponin I < 0.01, Vitamin B12 167 L 10/29/16 2213: PT Cancelled, INR Cancelled 10/29/16 1800: Urinalysis LIGHT H, Urine Color STRAW, Urine Clarity CLEAR, Urine pH 7.0, Ur Specific Tolar 1.010, Urine Protein NEG, Urine Ketones NEG, Urine Nitrite NEG, Urine Bilirubin NEG, Urine Urobilinogen 1.0, Ur Leukocyte Esterase TRACE H, Ur Microscopic SEDIMENT EXAMINED, Urine RBC RARE, Urine WBC RARE, Ur Epithelial Cells FEW, Urine Bacteria FEW H, Urine Hemoglobin NEG, Urine Glucose NEG 10/29/16 1644: Anion Gap 9, Estimated GFR > 60, BUN/Creatinine Ratio 8.0, Glucose 78, Calcium 8.6, Iron 12 L, TIBC 564 H, Ferritin 4.2 L, Total Bilirubin 0.4, AST 16, ALT 23, Alkaline Phosphatase 98, Troponin I < 0.01, Total Protein 6.3, Albumin 3.4 L, Globulin 2.9, Albumin/Globulin Ratio 1.2, TSH 0.736, Free T4 1.07, PT 10.5, INR 1.00, D-Dimer 539 H, CBC w Diff NO MAN DIFF REQ, RBC 3.21 L, MCV 69.9 L, MCH 21.6 L, RDW 19.4 H, MPV 7.0 L, Gran % 80.9 H, Lymphocytes % 12.9 L, Monocytes % 6.1, Eosinophils % 0, Basophils % 0.1, Absolute Granulocytes 11.3 H , Absolute Lymphocytes 1.8, Absolute Monocytes 0.8 H, Absolute Eosinophils 0, Absolute Basophils 0, PUBS MCHC 30.9 L, Retic Count 5.04 H Assessment/Plan Assessment: This is a 25-year-old female abortus 2, who is currently 33 weeks , who comes in for chief complaint of chest tightness. Past medical history significant for tachycardia, hypertension in her previous , UTI, nephrolithiasis, depression, anxiety. She was evaluated by her OB and found to be tachycardic with mildly elevated blood pressure and was sent to ED for further workup. ED Workup shows: Vitals: 97.8, heart rate 108, respiratory 20, blood pressure ranging between 129 -116 systolic over 81-57 diastolic, 99% on room air UA positive for leukocyte esterase and few bacteria CBC: White count 14, hemoglobin 6.9, hematocrit 22.4, platelet 324. MCV 69.6. Negative D dimer EKG: Rate 103, , LVH. ST depressions in leads 3,4,5, and 6. QTc 47 Negative venous Doppler Negative CTA for pulmonary embolus Negative troponin 1 Given EKG changes and profound anemia patient will be admitted to the telemetry floor for further workup PLAN Anemia: Patient has hemoglobin 6.9, hematocrit 22.4. She does have a history of chronic anemia but this is below her baseline. MCV 69.6 suggesting that this is a chronic process; RDW large refuting thalassemia. Patient is on iron supplementation at home. Denies any bleeding including vaginal, rectal, or urinary sources. * Status post 2 unit PRBC in ED * Iron studies * Reticulocyte count * Peripheral smear * Guiac all stool Leukocytosis: Patient has white count 14 but is afebrile. She does have a urine analysis with few bacteria and some leukocyte esterase. Patient denies any symptoms. However she is as such we will treat a symptomatic bacteriuria. She also has a history of nephrolithiasis and she does have some tenderness to palpation in left flank area. Patient was evaluated in August 01 for nephrolithiasis, concern for ascending urinary infection a slight but present. * Ceftriaxone for UTI * Urine culture * UA Chest pain and Tachycardia: Patient has heart rate 108, this is likely secondary to her profound anemia. She does have a history of tachycardia and was followed by Dr. Justice. Lab earlier medications includes atenolol. Note that patient does not have proteinuria or fluid overload, or BP >140/90m suggesting against pre-eclampsia. * Monitor on telemetry * Consider echocardiogram * Lipid panel in a.m. * Audiology consult with Dr. Justice * Rule out ACS * Check TSH * LEATHER TACKER is following * 2 unit PRBC Full code Alps Regular diet As Ranked By This Provider Problem List: 1. Symptomatic anemia 2. Acute electrocardiogram changes 3. Left flank pain Core Measures/Miscellaneous Acute Coronary Syndrome ACS Diagnosis: No Cerebrovascular Accident CVA/TIA Diagnosis: No Congestive Heart Failure CHF Diagnosis: No Venous Thromboembolism VTE Risk Factors: Estrogen, / No Mech VTE prophylaxis d/t: No contraindications No VTE Pharm Prophylaxis d/t: No contraindications VTE Diagnosis: No VTE Type: NONE VTE Confirmed by (Test): NONE Severe Sepsis Severe Sepsis Present: No Septic Shock Septic Shock Present: No Miscellaneous Documentation Attending Case Discussed With: OLIMPIA JACKSON MD Primary Care Physician: DANIELITO BALDWIN DO Patient sees these Specialists Dr. Justice Level of Patient Care: Telemetry RAFAEL SIMENTAL MD,LARA 10/29/16 2207: Resident Review Statement Resident Statement: examined this patient, discussed with risk management internship, agreed with risk management internship, discussed with family, reviewed EMR data (avail) Other Findings: 20-year-old female with past medical history significant for sciatica, uncontrolled hypertension during the last few weeks of , not on any regular antihypertensive medications, sciatica, Came to emergency department with chief complaint of chest pain that started yesterday overnight, in the morning patient went to see her LEATHER TACKER and she was told to go to emergency department. Character of the pain was chest tightness along with shooting pain radiating in the legs and neck. Patient has never been suspended 4. Patient also had some mild shortness of breath and palpitations. Vitals in emergency department patient afebrile, no tachypnea, no tachycardia, systolic blood pressure 116-129 and diastolic 58-77, oxygen saturation of 97 200 % on room air. Examination patient was alert and oriented not in acute distress cuff today lying in the bed. Pertinent examination included reproducible chest pain on palpation in the epigastric area, S1 and S2 audible without any murmurs, no JVD, clear lungs, distended abdomen gravid uterus, grossly intact neurological examination. EKG showed no axis deviation, heart rate of 100, QTC prolonged 47, she depression in V3 V4 V5 and V6 along with 23 and aVF. Laboratory data showed leukocytosis of 14, severe anemia hemoglobin 6.9 and hematocrit of 22.4 with some low MCV 69.9, no significant electrolyte abnormality, UA showed leukocyte esterase of 2 bacteria. Troponin less than 0.012. D-dimer 539 Imaging showed no DVT on ultrasound and negative CTA for pulmonary embolism. Patient was admitted on telemetry floor for the management of following problems Rule out ACS Although patient mentioned about her being hypertensive during last few weeks of she does not have any other history of diabetes or hypertension and has never been on any antihypertensive medications. 2 sets of troponins were also negative but given these new acute changes in EKG we will rule her out for ACS. Most likely cause of patient's chest pain and shortness of breath is related to her severe anemia leading to exertional shortness of breath. She also has history of tachycardia and was following Dr. Justice before was on atenolol. - Admit to telemetry - Vitals q Shift - Monitor I/O - Daily weight - Cardio consult - Consider ECHO - Lipid panel from morning Acute on chronic anemia Given patient's reticulocyte index of 1.34, this clearly indicates that there is under production and MCV of 69.9 along with increased red cell distribution width and iron studies points towards diagnosis of iron deficiency anemia. Patient denies any recent GI, vagina or blood loss. Patient has had an endoscopy in 2013 which was not significant and patient was started on iron supplementation along with Prilosec. According to the patient Prilosec was stopped by her LEATHER TACKER. Patient is currently on iron replacement. We will give 2 units of PRBCs. Bacteriuria Patient was treated in July for a urinary tract infection with nitrofurantoin. Patient also came to emergency department with a complaint of kidney stones. Is already a urine culture showed no growth after 2 days. Obtain an LEATHER TACKER consult and patient can be started on nitrofurantoin or ceftriaxone for the treatment of asymptomatic bacteriuria in . Patient is full code Patient is on Alps for DVT prophylaxis Patient is on pain pathway but we will use only mild pain pathway because patient is and does not require any more pain medications Patient is on regular diet OLIMPIA JACKSON 10/30/16 0325: Attending MD Review Statement Attending Statement Attending MD Statement: examined this patient, discuss w/resident/PA/SET UP MECHANIC, agreed w/resident/PA/SET UP MECHANIC, discussed with family, reviewed EMR data (avail), reviewed images, amended to note Attending Assessment/Plan: CC: Chest Pain PMH: Tachycardia, HTN, sciatica A2, 33 wk came to ER after noticing chest pain started last night, at rest, substernal, non radiating, 9/10, not associated with palpitations, SOB , fever, cough. She went to see her Obgyn, who suggested to go to ER for evaluation for "blood clot". Patient was found to have anemia and received PRBC in ER, pain eased a little but not gone completely. Over the weekend she has abdominal cramping, which She has Hx chronic anemia, unclear etiology, no chronic bleeding in stool, no polymenorrhea or menorrhagia. She underwent endoscopy 2 year back without significant abnormality detected. Family Hx of anemia Vitals : afebrileP 108, RR20, BP 123/81, 99 RA On exam: A O 3, cooperative, no acute distress, neck supple, JVD normal, no lymphadenopathy, pale, and mucosa dry, no focal neurological deficit, no dependent edema, no obvious skin rashes or inflammation CVS: S1-S2, RRR, reproducible pain. RS: Clear to auscultate bilaterally. Abdomen: Gravid uterus, Soft, NT, ND, bowel sounds present. Labs: WBC 14.0, neutrophils 80%, hemoglobin 6.9, hematocrit 22.4, MCV 69.9, RDW 19.4, platelets 324, BUN 4, albumin 3.4, LFT unremarkable, d-dimer 534, UA positive for leukocyte esterase. CTA chest: No central or main pulmonary embolism identified with limited assessment of the subsegmental pulmonary arterial branches. No airspace disease. No acute process identified. DVT Doppler: Normal triplex scan without evidence of deep venous thrombosis involving the lower extremities. EKG: Diffuse ST depression in lateral leads A and P 25 year old female with 33 weeks , A2, comes in ER for substernal chest pain. CTA is negative for pulmonary embolism, troponin negative but she has diffuse ST depressions laterally leads on EKG. She is found to have hemoglobin of 6.9, which appears to be more chronic in nature. She denies any acute blood loss. She had previous workup with endoscopy in the past for chronic anemia without any results except atrophic gastritis. Her BUN is low as well. even though patient is on iron supplementation, her counts are still low, probably ?malabsorption. Given her symptomatic anemia, she was transfused 2 units PRBC in ER. Her chest pain is also reproducible, ? Additional costochondritis. She has significant leukocytosis with UA positive for leukocyte esterase, left-sided low back pain. Given her this UTI should be treated and rule out any obstruction. + Chronic anemia + Leukocytosis + UTI + Chest pain + Pulmonary embolism ruled out - Admit to telemetry - Serial EKG and troponin - Complete 2 units PRBC transfusion - Check iron studies, reticulocyte count, B12, folic acid , TSH - Urine culture - Renal ultrasound in a.m. - Cardiology consult in a.m., informed patient's CERTIFIED CODING SPECIALIST about patient being admitted - Adequate pain control
--- NOTE | 2016-10-29 22:14 | NUR ---
SECOND UNIT OF PRBC'S HUNG AT THIS TIME. PT CONTINUES NSR IN THE 90'S ON CM. REPORTS SLIGHT CHEST TIGHTNESS BUT DENIES SOB. DENIES CONTRACTIONS AND REPORTS STRONG MOVEMENT AT THIS TIME.
[2016-10-29 22:32] LABS: PT 10.5 SEC (9.4-12.5)
--- NOTE | 2016-10-30 01:12 | NUR ---
2ND UNIT OF BLOOD COMPLETED NO DISTRESS, SO AT BEDSIDE, PT UP TO BR GAIT STEADY NO DISTRESS, NO CO VAGINAL PAIN NO S/S IOF LABOR.HR 88 NO ECTOPY.
[2016-10-30 02:07] VITALS: BP 110/60
--- NOTE | 2016-10-30 03:26 | Admission Certification ---
Admission Certification Certification Statement - As attending physician, I certify that at the time of - admission, based on clinical presentation, severity of - symptoms, need for further diagnostic testing and - therapeutic interventions, and risk of adverse outcomes - without in-hospital treatment, in my clinical assessment, - this patient requires an acute hospital stay for a minimum - of two nights or longer. I have also considered psychsocial - factors such as support system, advanced age, financial - issues, cognitive issues, and failed out-patient treatments, - past re-admission history, safety of patient, and lack of - compliance as applicable. Specific rationale supporting this admission is: Chest pain, symptomatic anemia
--- NOTE | 2016-10-30 06:00 | NUR ---
AWOKE PATIENT TO OBTAIN VS. VSS. PATIENT REPORTS CURRENTLY PAIN FREE. NSR ON MONITOR, HR:88. AMBULATORY TO BATHROOM W/ STABLE GAIT NOTED.
--- NOTE | 2016-10-30 06:14 | NUR ---
PT'S BLOOD DRAWN AT 0612 1LAV,1SST AND SEN TO LAB
[2016-10-30 06:19] LABS: ABSOLUTE BASOPHIL COUNT 0 /CUMM (0.0-0.2); ABSOLUTE EOSINOPHIL COUNT 0.1 /CUMM (0.0-0.7); ABSOLUTE GRANULOCYTE CT 8.7 /CUMM (1.4-6.5); ABSOLUTE LYMPH COUNT 1.5 /CUMM (1.2-3.4); ABSOLUTE MONOCYTE COUNT 0.6 /CUMM (0.10-0.60); BASOPHIL % 0 % (0.0-2.0); EOSINOPHIL % 1.1 % (0-5); GRANULOCYTE % 79.1 % (42.2-75.2); MEAN CORPUSCULAR HGB 22.6 PG (27.0-31.0); MEAN CORPUSCULAR HGB CONC 31.6 G/DL (33.0-37.0); MEAN CORPUSCULAR VOLUME 71.6 FL (81.0-99.0); PLATELET COUNT 269 /CUMM (130-400); RBC DISTRIBUTION WIDTH 18.6 % (11.5-14.5); WHITE BLOOD CELL COUNT 11.1 /CUMM (4.8-10.8)
[2016-10-30 06:23] LABS: HEMATOCRIT 27.9 % (37-47)
[2016-10-30 06:31] VITALS: BP 104/52
--- NOTE | 2016-10-30 06:42 | NUR ---
IPOC CONTINUED AND UTD. PATIENT'S FAMILY LEAVING AT THIS TIME, "GOING TO GET BREAKFAST, COMING RIGHT BACK." RECLINER REMAINS AT BEDSIDE FOR FAMILY. PATIENT CONTINUES TO DENY COMPLAINTS.
--- NOTE | 2016-10-30 07:30 | NUR ---
ASSUMED CARE, OOB TO BATHROOM, VOMITED AFTER ATTEPTING TO EAT BREAKFAST.
--- NOTE | 2016-10-30 07:55 | NUR ---
MEDICATED FOR NAUSEA WITH DICLEGIS 10 MG PO.
--- NOTE | 2016-10-30 08:00 | PN- Housestaff ---
Subjective Follow-up For: acute anemia Subjective: She is seen and examined at bedside. She does report episodes of nausea. Currently does not endorse any acute complaints of chest pain, shortness of breath, fever, chills, abdominal pain or dysuria. No acute overnight event reported by nursing staff. Review of Systems Constitutional: Reports: see HPI. Objective Last 24 Hrs of Vital Signs/I&O Vital Signs Date Time Temp Pulse Resp B/P B/P Pulse O2 O2 Flow FiO2 Mean Ox Delivery Rate 10/30 0631 98.1 88 18 104/52 98 Room Air 10/30 0600 98.1 88 18 104/52 98 Room Air 10/30 0207 97.3 88 18 110/60 98 10/30 0114 97.3 88 18 110/60 98 10/29 2240 97.6 92 20 116/54 99 Room Air 10/29 2123 97.5 92 18 125/77 97 Room Air Room Air 10/29 1926 97.8 94 20 116/57 100 Room Air 10/29 1755 97.7 98 20 129/58 99 Room Air 10/29 1659 99 Room Air 10/29 1454 98.1 108 20 123/81 99 Room Air Intake & Output 10/30 1600 10/30 0800 10/30 0000 Intake Total 1000 Output Total 400 Balance 600 Intake, IV 1000 Output, Urine 400 Patient 70.76 kg 70.76 kg Weight Weight Reported by Patient Measurement Method Physical Exam General Appearance: Alert, Oriented X3, Cooperative, No Acute Distress Assessment/Plan Assessment: This is a 25-year-old female [id number], who is currently 33 weeks and with past medical history significant for hypertension in previous , sciataca, tachycardia, UTI, depression, anxiety, tympanostomy tubes, and nephrolithiasis who comes in for chief complaint of chest pain. Workup at the ED was remarkable for hemoglobin of 6.9 and EKG findings of ST depression of lateral leads. Pulmonary embolism was ruled out with unremarkable CTA. Patient received 2 units of PRBC with subsequent Hemoglobin showing appropriate correction. Her labs also remarkable for leukocytosis with UA suggestive of possible UTI. Of note, patient was recently treated for UTI with nitrofurantoin and completed therapy last week. Impression and plan #Acute on chronic symptomatic anemia Patient has chronic history of anemia and is on iron therapy. No acute bleeding noted, most likely secondary to worsening effect due to and possibly noncompliance with iron pills. Status post 2 units of PRBC. Patient hemoglobin is now about 8 and patient is asymptomatic. #Chest pain and EKG changes Troponins were trended and was unremarkable for any ischemic trend. When seen today in the morning patient did not have any complaints of chest pain, palpitations or shortness of breath and a post infusion EKG did not show the ST depressions. It is very likely the patient's presentation of chest pain and EKG changes were secondary to acute anemia episode. #Leukocytosis Trending down today. The FIGO patient had a UA that could be suggestive of a UTI and her can always weren't a low threshold for starting antibiotic therapy, however patient is noted to have completed a nitrofurantoin course a week ago and I personally contacted Dr. Juarez (PSYCHIATRIC NURSING ASSISTANT) who recommended for now to keep of an antibiotic and repeat a urine culture which she will follow-up on. She also recommended the patient upon discharge be admitted to childbirth for continuous monitoring due to her episode of chest pain and EKG changes. Problem List: 1. Acute electrocardiogram changes 2. Symptomatic anemia Pain Ratin Pain Location: none Pain Goal: Remain pain free Pain Plan: per pain pathway Tomorrow's Labs & Rationales: none-discharge
--- NOTE | 2016-10-30 09:02 | NUR ---
NAUSEA DECREASED, TO US VIA WHEELCHAIR.
--- NOTE | 2016-10-30 10:00 | NUR ---
RETURNED FROM US, UA SENT.
--- NOTE | 2016-10-30 10:00 | NUR ---
REPEAT EKG DONE. SR ON MONITOR.
--- NOTE | 2016-10-30 12:01 | NUR ---
PT AGREES TO WAIT FOR DR. PATTEN. LUNCH ORDERED.
--- NOTE | 2016-10-30 13:03 | ULTRASOUND REPORT ---
EXAMINATION: US RETROPERITONEAL COMPLETE (RENAL) CLINICAL INFORMATION: Recurrent UTI versus flank pain. Assess for nephrolithiasis. COMPARISON: Renal ultrasound 08/01/2016. TECHNIQUE: Real-time imaging of the kidneys and bladder. FINDINGS: RIGHT KIDNEY: 11.6 x 5.3 x 5.3 cm (SAG x AP x TRV). The kidney is normal in size, contour, and echogenicity. Renal cortical thickness is normal. There is a 0.3 x 0.2 x 0.3 cm echogenic calculus at the lower pole, demonstrated on prior imaging. There is no hydronephrosis or focal parenchymal lesion. LEFT KIDNEY: 11.7 x 6.0 x 5.2 cm (SAG x AP x TRV). The kidney is normal in size, contour, and echogenicity. Renal cortical thickness is normal. No calculi or focal parenchymal lesions. No hydronephrosis. BLADDER: The bladder is decompressed. Bilateral ureteral jets are not demonstrated. The study demonstrates a single intrauterine gestation, which has a heart rate of 131 bpm. The placenta is anterior. The biparietal diameter is 8.42 cm, and the occipital frontal diameter is 10.7 cm, both corresponding to 34 weeks of gestation. The estimated date of delivery is 12/12/2016. IMPRESSION: 1. The study redemonstrates a nonobstructive calculus at the lower pole of the right kidney. There is no hydronephrosis. 2. There is a viable intrauterine gestation of approximately 34 weeks.
--- NOTE | 2016-10-30 13:12 | NUR ---
BED ASSIGNMENT [phone]
--- NOTE | 2016-10-30 13:37 | PN- Att Addend ---
Attending Addendum Attending Brief Note Patient seen and examined, overall feeling better. Chest pain is resolved. Sinus tachycardia has improved. H&H improved after she received transfusion. Cardiology evaluation is still pending. Vital Signs Date Time Temp Pulse Resp B/P B/P Pulse O2 O2 Flow FiO2 Mean Ox Delivery Rate 10/30 630 98.1 88 18 104/52 98 Room Air 10/30 0600 98.1 88 18 104/52 98 Room Air 10/30 0207 97.3 88 18 110/60 98 10/30 0114 97.3 88 18 110/60 98 10/29 2240 97.6 92 20 116/54 99 Room Air 10/29 2123 97.5 92 18 125/77 97 Room Air Room Air 10/29 1926 97.8 94 20 116/57 100 Room Air 10/29 1755 97.7 98 20 129/58 99 Room Air 10/29 1659 99 Room Air 10/29 1454 98.1 108 20 123/81 99 Room Air on exam; aox3, nad. cv; s1,s2, rrr resp; clear abd; soft, nt, bs+, + abd. ext; no edema Laboratory Tests 10/30 10/30 1000 0612 Chemistry Triglycerides (<150 mg/dL) 138 Cholesterol (<200 MG/DL) 193 LDL Cholesterol, Calc (65 - 129 mg/dL) 127 HDL Cholesterol (40 - 60 mg/dL) 39 L Cholesterol/HDL Ratio (0.00 - 4.23 %) 5 H Hematology CBC w Diff NO MAN DIFF REQ WBC (4.8 - 10.8 /CUMM) 11.1 H RBC (4.20 - 5.40 /CUMM) 3.90 L Hgb (12.0 - 16.0 G/DL) 8.8 L Hct (37 - 47 %) 27.9 L MCV (81.0 - 99.0 FL) 71.6 L MCH (27.0 - 31.0 PG) 22.6 L RDW (11.5 - 14.5 %) 18.6 H Plt Count (130 - 400 /CUMM) 269 MPV (7.4 - 10.4 FL) 7.0 L Gran % (42.2 - 75.2 %) 79.1 H Lymphocytes % (20.5 - 51.1 %) 14.0 L Monocytes % (1.7 - 9.3 %) 5.8 Eosinophils % (0 - 5 %) 1.1 Basophils % (0.0 - 2.0 %) 0 L Absolute Granulocytes (1.4 - 6.5 /CUMM) 8.7 H Absolute Lymphocytes (1.2 - 3.4 /CUMM) 1.5 Absolute Monocytes (0.10 - 0.60 /CUMM) 0.6 Absolute Eosinophils (0.0 - 0.7 /CUMM) 0.1 Absolute Basophils (0.0 - 0.2 /CUMM) 0 PUBS MCHC (33.0 - 37.0 G/DL) 31.6 L Urines Urine Color (YEL,AMB,STR) YEL Urine Clarity (CLEAR) CLEAR Urine pH (5.0 - 8.0) 7.5 Ur Specific Dudley (1.001 - 1.035) 1.015 Urine Protein (NEG,<30 MG/DL) NEG Urine Ketones (NEG) NEG Urine Nitrite (NEG) NEG Urine Bilirubin (NEG) NEG Urine Urobilinogen (0.1 - 1.0 EU/dl) 1.0 Ur Leukocyte Esterase (NEG) MOD H Ur Microscopic SEDIMENT EXAMINED Urine WBC (0 - 2 /HPF) 5-10 H Ur Epithelial Cells (NONE,FEW) FEW Urine Bacteria (NEG/NONE) FEW H Urine Hemoglobin (NEG) NEG Urine Glucose (N MG/DL) NEG 10/29 10/29 10/29 8844 2213 1800 Chemistry Troponin I (< 0.11 ng/ml) < 0.01 Vitamin B12 (239 - 931 pg/mL) 167 L Coagulation PT Cancelled INR Cancelled Urines Urinalysis LIGHT H Urine Color (YEL,AMB,STR) STRAW Urine Clarity (CLEAR) CLEAR Urine pH (5.0 - 8.0) 7.0 Ur Specific Dudley (1.001 - 1.035) 1.010 Urine Protein (NEG,<30 MG/DL) NEG Urine Ketones (NEG) NEG Urine Nitrite (NEG) NEG Urine Bilirubin (NEG) NEG Urine Urobilinogen (0.1 - 1.0 EU/dl) 1.0 Ur Leukocyte Esterase (NEG) TRACE H Ur Microscopic SEDIMENT EXAMINED Urine RBC (0 - 5 /HPF) RARE Urine WBC (0 - 2 /HPF) RARE Ur Epithelial Cells (NONE,FEW) FEW Urine Bacteria (NEG/NONE) FEW H Urine Hemoglobin (NEG) NEG Urine Glucose (N MG/DL) NEG 10/29 1644 Chemistry Sodium (137 - 145 mmol/L) 137 Potassium (3.5 - 5.1 mmol/L) 3.6 Chloride (98 - 107 mmol/L) 104 Carbon Dioxide (22 - 30 mmol/L) 23 Anion Gap (5 - 16) 9 BUN (7 - 17 mg/dL) 4 L Creatinine (0.5 - 1.0 mg/dL) 0.5 Estimated GFR (>60 ml/min) > 60 BUN/Creatinine Ratio (7 - 25 %) 8.0 Glucose (65 - 99 mg/dL) 78 Calcium (8.4 - 10.2 mg/dL) 8.6 Iron (37 - 170 ug/dL) 12 L TIBC (265 - 497 ug/dL) 564 H Ferritin (6.24 - 137 ng/mL) 4.2 L Total Bilirubin (0.2 - 1.3 mg/dL) 0.4 AST (14 - 36 U/L) 16 ALT (9 - 52 U/L) 23 Alkaline Phosphatase (<127 U/L) 98 Troponin I (< 0.11 ng/ml) < 0.01 Total Protein (6.3 - 8.2 g/dL) 6.3 Albumin (3.5 - 5.0 g/dL) 3.4 L Globulin (1.9 - 4.2 gm/dL) 2.9 Albumin/Globulin Ratio (1.1 - 2.2 %) 1.2 Folate (2.76 - 20.0 ng/mL) 4.7 TSH (0.270 - 4.200 uIU/mL) 0.736 Free T4 (0.79 - 2.35 ng/dL) 1.07 Coagulation PT (9.4 - 12.5 SEC) 10.5 INR (0.90 - 1.19) 1.00 D-Dimer (70 - 232 ng/ml) 539 H Hematology CBC w Diff NO MAN DIFF REQ WBC (4.8 - 10.8 /CUMM) 14.0 H RBC (4.20 - 5.40 /CUMM) 3.21 L Hgb (12.0 - 16.0 G/DL) 6.9 *L Hct (37 - 47 %) 22.4 L MCV (81.0 - 99.0 FL) 69.9 L MCH (27.0 - 31.0 PG) 21.6 L RDW (11.5 - 14.5 %) 19.4 H Plt Count (130 - 400 /CUMM) 324 MPV (7.4 - 10.4 FL) 7.0 L Gran % (42.2 - 75.2 %) 80.9 H Lymphocytes % (20.5 - 51.1 %) 12.9 L Monocytes % (1.7 - 9.3 %) 6.1 Eosinophils % (0 - 5 %) 0 Basophils % (0.0 - 2.0 %) 0.1 Absolute Granulocytes (1.4 - 6.5 /CUMM) 11.3 H Absolute Lymphocytes (1.2 - 3.4 /CUMM) 1.8 Absolute Monocytes (0.10 - 0.60 /CUMM) 0.8 H Absolute Eosinophils (0.0 - 0.7 /CUMM) 0 Absolute Basophils (0.0 - 0.2 /CUMM) 0 PUBS MCHC (33.0 - 37.0 G/DL) 30.9 L Retic Count (0.5 - 2.0 %) 5.04 H A/P; 25 y/o F who is [id number], who is currently 33 weeks and with past medical history significant for hypertension in previous , sciataca, tachycardia, UTI, depression, anxiety, nephrolithiasis, chronic iron def anemia, who was admitted with chest pain with abnormal EKG, acute on chronic anemia but no history of blood loss. Patient found to be deficient in iron as well as vitamin B12 and folate. She has microcytic anemia. Troponins negative. Patient will be seen by cardiology. Reportedly she had stopped taking her cardiac medication which she was given for sinus tachycardia when she became . She has received 2 units of RBCs and her H&H has improved. We are recommending oncology hematology consultation. Patient is not willing to stay longer to see the weight shifter. If this cannot be done while she is in the hospital, this can certainly be done when she gets discharged as an outpatient. Cardiology evaluation is pending. We also spoke with her SPORTS DIRECTOR Shyanne Juarez MD. She recommends that patient should be admitted to [facility] for monitoring because according to Dr. Juarez patient is very noncompliant. They want to make sure that viability is there. Dr. Juarez wants Dr. Justice to clear the patient before she could go down to childbirth center. She had 5-10 to WBC and few bacteria in her urine. She did have a leukocytosis when she came in but it is improving on her own. I did speak with Dr. Salcido over the phone. We can wait for the urine cultures to come back. If they grow anything that she will need to be on antibiotics. Please communicate this urine culture pending with SPORTS DIRECTOR Dr. Juarez. Pt will be discharged to child center today after gets clearance from cardiology today. D/W patient's father at bedside.
--- NOTE | 2016-10-30 13:43 | Cons- Cardiology ---
General Information and HPI Consulting Request Date of Consult: 10/30/16 Requested By: OLIMPIA JACKSON MD History of Present Illness: Milagros is a 25 year old female with history of hypertension who presents to the ER for evaluation of chest discomfort and shortness of breath. The chest discomfort began yesterday after some severe contractions related to pregnance. She also felt that her breasts were particularly swollen at that time. The discomfort did not have any exertional component to it but rather worsened with manual palptation and inhalation. This discomfort with breathing resulted in shortness of breath. She does have a left leg discomfort that is sharp, transient and travels down the hip. These symptoms have abated and her LE ultrasound was negative for a DVT. A CT angiogram was also negative for a pulmonary embolism. Finally, this patient was anemic upon initial presentation and feels improved following a blood transfusion. In the setting of this anemia some non-specific, diffuse ST segment changes were noted. The patient denies any palpitations beyond her baseline. This patient was previously on Atenolol which was helpful in suppressing her palpitations. The drug was discontinued due to her . A prior cardiac workup included an echocardiogram showing normal left ventricular size, thickness and function with a normal Ef of 605 and trace TR. Allergies/Medications Allergies: Coded Allergies: NO KNOWN ALLERGIES (06/13/15) Home Med List: Doxylamine/Pyridoxine HCl (Diclegis Dr 10-10 MG Tablet) 10 MG-10 MG TABLET.DR 2 TAB PO QPM N/V (Reported) Doxylamine/Pyridoxine HCl (Diclegis Dr 10-10 MG Tablet) 10 MG-10 MG TABLET.DR 1 TAB PO QAM N/V (Reported) Iron Carb,Gl/FA/B12/C/Docusate (Ferralet 90 Tablet) 90 MG-1 MG-12 MCG-120 MG-50 MG TABLET 1 TAB PO DAILY SUPPLEMENT (Reported) Lidocaine 5 % ADH..PATCH 1 PAT TOP PRN PAIN (Reported) Ondansetron HCl 4 MG TABLET 1 TAB PO Q6P PRN N/V (Reported) Vit37/Iron/Folic Acid (Prenata Chewable Tablet) 1 EACH TAB.CHEW 1 TAB PO DAILY (Reported) Review of Systems Review of Systems: A twelve point review of systems is remarkable for anemia. 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 Home Smoking Status: Current Everyday Smoker ETOH Use: denies use Functional Ability ADLs Independent: dressing, eating, toileting, bathing. Ambulation: independent IADLs Independent: shopping, housework, finances, food prep, telephone, transportation , medication admin. Exam & Diagnostic Data Vital Signs and I&O Vital Signs Date Time Temp Pulse Resp B/P B/P Pulse O2 O2 Flow FiO2 Mean Ox Delivery Rate 10/30 630 98.1 88 18 104/52 98 Room Air 10/30 0600 98.1 88 18 104/52 98 Room Air 10/30 0207 97.3 88 18 110/60 98 10/30 0114 97.3 88 18 110/60 98 10/29 2240 97.6 92 20 116/54 99 Room Air 10/29 2123 97.5 92 18 125/77 97 Room Air Room Air 10/29 1926 97.8 94 20 116/57 100 Room Air 10/29 1755 97.7 98 20 129/58 99 Room Air 10/29 1659 99 Room Air 10/29 1454 98.1 108 20 123/81 99 Room Air Intake & Output 10/30 1600 10/30 0800 10/30 0000 10/29 1600 10/29 0800 10/29 0000 Intake Total 1000 Output Total 400 Balance 600 Intake, IV 1000 Output, Urine 400 Patient 156 lb 156 lb 156 lb Weight Weight Reported by Patient Reported by Patient Measurement Method Physical Exam: General: WD/ WN female in NAD;alert and oriented x 3 HEENT: NC/ AT, PERRL, EOMI Neck: no JVD, no carotid bruit Heart: RRR w/o murmur Lungs: clear bilaterally Abdomen: soft, , NT, +ve bowel sounds Extremities: no edema Assessment/Plan Assessment/Plan * This patient had fleeting chest discomfort yesterday that resolved. The discomfort was clearly exacerbated by manual palpation and deep inhalation which is suggestive of a musculoskeletal etiology. She was straining due to uterine contractions yesterday and her breasts were particularly swollen yesterday which goes along with a musculoskeletal pain. She does not have evidence of a DVT or PE and has no JVD to suggest increased RV pressures. Her breathing is also improved now and was likely due to movement of her chest wall. Her tachycardia an ECG changes were likely due to severe anemia but this is improved post transfusion. * This patient does have a history of palpitations that have been well treated when on Atenolol. This drug was discontinued, however, due the possibility of intrauterine growth retardation. In previous pregnancies the patient was hypertensive toward the end of her . This does not appear to be the case today. If she does develop hypertension then beta blockers can be used in the last trimester or a centrally actin alpha agonist such as methyldopa is an option. ACEI are contraindicated. At present, I do not see any indication for beginning any new medications. * This patient is stable for discharge and should follow up in the office in one week. Consult Acknowledgment - Thank you for your consult request.
--- NOTE | 2016-10-30 14:13 | Patient Discharge Instructions ---
Discharge Instructions General Discharge Information You were seen/treated for: Acute Anemia You had these procedures: 2 units of Blood transfusion Special Instructions: You will be admitted to [facility] center upon being discharged from [facility] Please continue to follow up with your PACKAGING DESIGNER (Dr Pacheco) Please follow up with your pneumatic tube fitter within 1 week (Dr Justice) Please seek medical attention if you develop more episodes of cehst pain or shortness of breath Acute Coronary Syndrome Inclusion Criteria At DC or during hospital stay patient has or had the following: ACS DIAGNOSIS No Discharge Core Measures Meds if any: Prescribed or Continued at Discharge Meds if any: NOT Prescribed or Continued at Discharge Congestive Heart Failure Inclusion Criteria At DC or during hospital stay patient has or had the following: CHF DIAGNOSIS No Discharge Core Measures Meds if any: Prescribed or Continued at Discharge Meds if any: NOT Prescribed or Continued at Discharge Cerebrovascular accident Inclusion Criteria At DC or during hospital stay patient has or had the following: CVA/TIA Diagnosis No Discharge Core Measures Meds if any: Prescribed or Continued at Discharge Meds if any: NOT Prescribed or Continued at Discharge Venous thromboembolism Inclusion Criteria VTE Diagnosis No VTE Type NONE VTE Confirmed by (Test) NONE Discharge Core Measures - Per Current guidelines, there needs to be overlap - treatment for the first 5 days of Warfarin therapy. - If discharged on Warfarin prior to 5 days of - overlap therapy, the patient will need to be - assessed for post discharge needs including - *Post discharge parental anticoagulation - *Warfarin and/or parental anticoagulation education - *Follow up date to check INR post discharge At least 5 days overlap therapy as Inpatient No Meds if any: Prescribed or Continued at Discharge Note: Overlap Therapy is Warfarin and Anticoagulant Meds if any: NOT Prescribed or Continued at Discharge
--- NOTE | 2016-10-30 16:32 | PN- Housestaff ---
Assessment/Plan Assessment: This is a 25-year-old female [id number], who is currently 33 weeks and with past medical history significant for hypertension in previous , sciataca, tachycardia, UTI, depression, anxiety, tympanostomy tubes, and nephrolithiasis who comes in for chief complaint of chest pain. Workup at the ED was remarkable for hemoglobin of 6.9 and EKG findings of ST depression of lateral leads. Pulmonary embolism was ruled out with unremarkable CTA. Patient received 2 units of PRBC with subsequent Hemoglobin showing appropriate correction. Her labs also remarkable for leukocytosis with UA suggestive of possible UTI. Of note, patient was recently treated for UTI with nitrofurantoin and completed therapy last week. Impression and plan #Acute on chronic symptomatic anemia Patient has chronic history of anemia and is on iron therapy. No acute bleeding noted, most likely secondary to worsening effect due to and possibly noncompliance with iron pills. Status post 2 units of PRBC. Patient hemoglobin is now about 8 and patient is asymptomatic. #Chest pain and EKG changes Troponins were trended and was unremarkable for any ischemic trend. When seen today in the morning patient did not have any complaints of chest pain, palpitations or shortness of breath and a post infusion EKG did not show the ST depressions. It is very likely the patient's presentation of chest pain and EKG changes were secondary to acute anemia episode. #Leukocytosis Trending down today. The FIGO patient had a UA that could be suggestive of a UTI and her can always weren't a low threshold for starting antibiotic therapy, however patient is noted to have completed a nitrofurantoin course a week ago and I personally contacted Dr. Juarez (POT RELINER) who recommended for now to keep of an antibiotic and repeat a urine culture which she will follow-up on. She also recommended the patient upon discharge be admitted to childbirth for continuous monitoring due to her episode of chest pain and EKG changes.
--- NOTE | 2016-10-30 16:35 | Discharge Summary ---
Visit Information Visit Dates Admission Date: 10/29/16 Discharge Date: 10/30/16 Hospital Course Course Attending Physician: SITA COLBY,[place] Primary [facility]: This is a A2, 33 wk patient who presented to [facility] EDF with c/o of chest pain starting the night befor presentation. CP was non exettional, substernal, non radiating, 9/10. Not associated with palpitations, SOB , fever, cough. No reports of vaginal bleeding, , no chronic bleeding in stool, no polymenorrhea or menorrhagia.. Earlier in the morning, pt was seen by her OBGYN who had clinical suspicion of possible PE and therefore instructed patient to present to [place] ED. Pt has Hx chronic anemia, unclear etiology She underwent endoscopy 2 year back without significant abnormality detected. +ve Family Hx of anemia On Presentation: Vitals : afebrileP 108, RR20, BP 123/81, 99 RA Exam: A O 3, cooperative, no acute distress, neck supple, JVD normal, no lymphadenopathy, pale, and mucosa dry, no focal neurological deficit, no dependent edema, no obvious skin rashes or inflammation CVS: S1-S2, RRR, reproducible pain. RS: Clear to auscultate bilaterally. Abdomen: Gravid uterus, Soft, NT, ND, bowel sounds present. Labs: WBC 14.0, neutrophils 80%, hemoglobin 6.9, hematocrit 22.4, MCV 69.9, RDW 19.4, platelets 324, BUN 4, albumin 3.4, LFT unremarkable, d-dimer 534, UA positive for leukocyte esterase. CTA chest: No central or main pulmonary embolism identified with limited assessment of the subsegmental pulmonary arterial branches. No airspace disease. No acute process identified. DVT Doppler: Normal triplex scan without evidence of deep venous thrombosis involving the lower extremities. EKG: Diffuse ST depression in lateral leads Pt received 2 units of PRBC and was admitted for acute on chronic symptomatic anemia. Repeat H/H status post 2 units PRBC showed adequate correction with H/H of 8.9/27.9. Serial troponin and EKG were trendeed and did not show any acute ischemic changes, therefore ACS was ruled out. Pt symptoms of chest complain also resolved. She did have some episode of nausea and vomiting with relief after receiving zofran IV. Pt was also noted to have leukocytosis, and a UA suggestive of UTI with negative cultures and no dysuria, urinary frequency changes or fever/chills. Since patient had just finished an ABX course for Nitrofurantoin, decision was made (in conjuction with advise from her OBGYN) to not start a new course of ABX for her asymptomatic UTI, a repeat urine culture was ordered and Dr Juarez (fiberglass roller) was to f/u with the results. Per, Dr Juarez medications, patient was discharged and admitted on the same date of discharge to childbirth for continuous monitoring due to her episode of chest pain and symptomatic anemia. Allergies: Coded Allergies: NO KNOWN ALLERGIES (06/13/15) Disposition Summary Disposition Principal Diagnosis: Symptomatic Anemia Additional Diagnosis: 2.Chest pain 3.Leukocytosis Discharge Disposition: Admitted to child Discharge Instructions General Discharge Information Code Status: Full Code Patient's Diet: Regular Patient's Activity: As tolerated Follow-Up Instructions/Appts: Pt to be admitted same day of discharge to child Pt to f/u with fiberglass roller Medications at Discharge Discharge Medications: Continue taking these medications: Vit37/Iron/Folic Acid (Prenata Chewable Tablet) 1 EACH TAB.CHEW 1 Tablet ORAL DAILY Comments: PER PT Doxylamine/Pyridoxine HCl (Danna Edmonds 10-10 MG Tablet) 10 MG-10 MG TABLET.DR 2 Tablet ORAL Every night Qty = 120 Comments: PER PT Doxylamine/Pyridoxine HCl (Danna Edmonds 10-10 MG Tablet) 10 MG-10 MG TABLET.DR 1 Tablet ORAL Every Morning Comments: PER PT Ondansetron HCl (Ondansetron HCl) 4 MG TABLET 1 Tablet ORAL EVERY SIX HOURS NEEDED as needed for N/V Qty = 120 Comments: PER PT Lidocaine (Lidocaine) 5 % ADH..PATCH 1 Patch On the skin as needed for PAIN Qty = 30 Iron Carb,Gl/FA/B12/C/Docusate (Ferralet 90 Tablet) 90 MG-1 MG-12 MCG-120 MG-50 MG TABLET 1 Tablet ORAL DAILY Qty = 30 Copies To: DANIELITO BALDWIN DO
== END 2016-10-30 14:36 | DRG 203 ==
LOC: ERH 14:44 → ERHI 20:46 → ENRESERV 10-30 13:11 → CANRESERV 10-30 13:11 → ERHI 10-30 14:26
PROVIDERS: Physician Assistant Medical; Student in an Organized Health Care Education/Training Program; ADMIT Internal Medicine
PROC: 30233N1 Transfusion of Nonautologous Red Blood Cells into Peripheral Vein, Percutaneous Approach (ICD-10-PCS; principal; 2016-10-29)
DX: R07.9 Chest pain, unspecified (principal); D50.9 Iron deficiency anemia, unspecified; O99.013 Anemia complicating pregnancy, third trimester; Z3A.33 33 weeks gestation of pregnancy; F17.200 Nicotine dependence, unspecified, uncomplicated; R00.0 Tachycardia, unspecified; E53.8 Deficiency of other specified B group vitamins
CPT/HCPCS: ERO; 59025; 76775; 80307; 81001; 84112; 86920; 87086; 93005; 93010; 93970; 96360; 96361; 96365; 96366; 96372; 99291; G0463; J0702; P9016

== ENCOUNTER 2016-12-07 20:17 | Inpatient (IN) | payer OTHER ==
[~2016-12-07] VITALS: Ht 152.4 cm; Wt 71.7 kg
[~2016-12-07 20:17] MED LIST changes: +FERRALET 90 TA1 EACH PO; +LIDOCAINE1 EACH TOP
[2016-12-07 21:10] LABS: ABSOLUTE BASOPHIL COUNT 0 /CUMM (0.0-0.2); ABSOLUTE EOSINOPHIL COUNT 0.1 /CUMM (0.0-0.7); ABSOLUTE GRANULOCYTE CT 7.1 /CUMM (1.4-6.5); ABSOLUTE LYMPH COUNT 1.7 /CUMM (1.2-3.4); ABSOLUTE MONOCYTE COUNT 0.5 /CUMM (0.10-0.60); BASOPHIL % 0.4 % (0.0-2.0); EOSINOPHIL % 0.7 % (0-5); GRANULOCYTE % 75.2 % (42.2-75.2); HEMATOCRIT 28.9 % (37-47); MEAN CORPUSCULAR HGB 25.1 PG (27.0-31.0); MEAN CORPUSCULAR HGB CONC 32.5 G/DL (33.0-37.0); MEAN CORPUSCULAR VOLUME 77.2 FL (81.0-99.0); MEAN PLATELET VOLUME 8.1 FL (7.4-10.4); PLATELET COUNT 248 /CUMM (130-400); RBC DISTRIBUTION WIDTH 26.3 % (11.5-14.5); RED BLOOD CELL CT 3.74 /CUMM (4.20-5.40); WHITE BLOOD CELL COUNT 9.5 /CUMM (4.8-10.8)
--- NOTE | 2016-12-07 22:15 | History & Physical ---
General Information and HPI MD Statement: I have seen and personally examined OLGA GILLESPIE and documented this H&P. The patient is a 26 year old female at [] weeks and [] days gestation who presented with a chief complaint of [] rupture of membranes History of Present Illness: 26-year-old 6 para 20-2 at 38 weeks gestation presents to childbirth center with complaint of rupture of membranes after 2 days irregular contractions patient is grossly ruptured with meconium. She is by the nurses found to be 3 cm I she has contractions every 5-8 minutes apart I she is admitted Allergies/Medications Allergies: Coded Allergies: NO KNOWN ALLERGIES (06/13/15) Home Med list Doxylamine/Pyridoxine HCl (Diclegis Dr 10-10 MG Tablet) 10 MG-10 MG TABLET.DR 2 TAB PO QPM N/V (Reported) Doxylamine/Pyridoxine HCl (Diclegis Dr 10-10 MG Tablet) 10 MG-10 MG TABLET.DR 1 TAB PO QAM N/V (Reported) Iron Carb,Gl/FA/B12/C/Docusate (Ferralet 90 Tablet) 90 MG-1 MG-12 MCG-120 MG-50 MG TABLET 1 TAB PO DAILY SUPPLEMENT (Reported) Lidocaine 5 % ADH..PATCH 1 PAT TOP PRN PAIN (Reported) Ondansetron HCl 4 MG TABLET 1 TAB PO Q6P PRN N/V (Reported) Vit37/Iron/Folic Acid (Prenata Chewable Tablet) 1 EACH TAB.CHEW 1 TAB PO DAILY (Reported) 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 History : 6 Para: 2 Last Menstrual Period: 10 3 201`6 Past physical security engineer History: question cardiomyopathy Medical History Neurological: NONE EENT: otitis media, TUBES IN EARS Cardiovascular: hypertension, TACHY Respiratory: NONE Gastrointestinal: NONE Hepatic: NONE Renal: nephrolithiasis, UTI Musculoskeletal: NONE Psychiatric: anxiety, depression Endocrine: NONE Blood Disorders: anemia Cancer(s): NONE 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 No Contractions: q 3 minutes Patient for Induction? No Labs Blood Type & Rh: o+ Antibody Screen: neg Hct/Hgb & Platelets #1: Hct/Hgb & Platelets #2: Rubella: immune VDRL #1: nr VDRL #2: nr HbsAg: neg HIV #1: neg HIV #2 negneg 1 Hr P Group B Strep: neg Initial Ultrasound: nl Anatomy Ultrasound: nl Ultrasound for EFW: neg Genetic Testing: nl Assessment/Plan As Ranked By This Provider Problem List: 1. Core Measures/Miscellaneous Venous Thromboembolism VTE Risk Factors: / VTE Contraindications: No Contraindications VTE Diagnosis: No Beta Ray Is Beta Ray a Home Med? No Antibiotics Is Patient on Antibiotics? No Attending MD Review Statement Attending Statement Attending MD Statement: examined this patient
--- NOTE | 2016-12-08 03:02 | Labor & Delivery Summary ---
Delivery Summary Vaginal Delivery: Vaginal: vertex Episiotomy/Lacerations: Episiotomy/Lacerations: none Placenta: Placenta: spontanteous, normal, 3 vessel Anesthesia: block Additional Comments: WITH LIGHT MECONIUM 2 CORDS AROUND NECK REDUCIBLE WITH ONE PUSH.PLACENTA BY CCT [email or web address].
[2016-12-08 03:25] VITALS: BP 118/76
[2016-12-09 08:34] LABS: ABSOLUTE BASOPHIL COUNT 0 /CUMM (0.0-0.2); ABSOLUTE EOSINOPHIL COUNT 0.1 /CUMM (0.0-0.7); ABSOLUTE GRANULOCYTE CT 5.8 /CUMM (1.4-6.5); ABSOLUTE LYMPH COUNT 2.1 /CUMM (1.2-3.4); ABSOLUTE MONOCYTE COUNT 0.5 /CUMM (0.10-0.60); BASOPHIL % 0.3 % (0.0-2.0); EOSINOPHIL % 0.8 % (0-5); GRANULOCYTE % 68.8 % (42.2-75.2); HEMATOCRIT 27.6 % (37-47); MEAN CORPUSCULAR HGB 25.5 PG (27.0-31.0); MEAN CORPUSCULAR HGB CONC 32.6 G/DL (33.0-37.0); MEAN PLATELET VOLUME 8.1 FL (7.4-10.4); PLATELET COUNT 222 /CUMM (130-400); RBC DISTRIBUTION WIDTH 26.1 % (11.5-14.5); RED BLOOD CELL CT 3.54 /CUMM (4.20-5.40); WHITE BLOOD CELL COUNT 8.5 /CUMM (4.8-10.8)
[2016-12-09] MEDS ORDERED: PERCOCET 5-3251 EACH PO (11:16)
[2016-12-09] MEDS ORDERED: IBUPROFEN800 M1 PO (11:16)
--- NOTE | 2016-12-09 11:28 | PN- Post Delivery/GYN ---
Subjective Subjective: NO COMPLAINTS Objective Last 24 Hrs of Vital Signs/I&O PER CHART Physical Exam: PALE WF INANAND ABD SOFT NT LOCHIA MINIMAL EXT -EDEMA -HOMANS Assessment/Plan Assessment/Plan ASSESS S/P PLAN DEPO PROVERA
== END 2016-12-09 13:29 | DRG 560 ==
LOC: CBCO 20:17 → GNO 20:39
PROVIDERS: ADMIT Specialist
PROC: 10E0XZZ Delivery of Products of Conception, External Approach (ICD-10-PCS; principal; 2016-12-08)
DX: O69.81X0 Labor and delivery complicated by cord around neck, without compression, not applicable or unspecified (principal); O99.334 Smoking (tobacco) complicating childbirth; Z3A.38 38 weeks gestation of pregnancy; Z37.0 Single live birth
CPT/HCPCS: GNOP; GNOS; 80307; 81001; 87086; 87389; J1050; J1885; J7120

== ENCOUNTER 2017-06-04 20:10 | Emergency (ER) | payer OTHER ==
[~2017-06-04] VITALS: Ht 152.4 cm; Wt 63.5 kg
[~2017-06-04 20:10] MED LIST changes: +ANECREAM515 GM RC; +CITALOPRAM HBR20 MG PO; +IBUPROFEN800 M1 PO
[2017-06-04 20:25] VITALS: BP 108/80
[2017-06-04] MEDS ORDERED: DOXYCYCLINE HY100 M4 PO (21:42)
--- NOTE | 2017-06-04 21:42 | ED UPPER/LOWER EXTREMITY COMPL ---
History of Present Illness General Chief Complaint: Skin Rash/ Abcess Stated Complaint: ABCESS BACK OF R THIGH Source: patient Exam Limitations: no limitations Vital Signs & Intake/Output Vital Signs & Intake/Output Vital Signs Date Time Temp Pulse Resp B/P B/P Pulse O2 O2 Flow FiO2 Mean Ox Delivery Rate 06/047 96 Room Air 06/04 2024 97.4 107 16 108/80 95 Room Air Allergies Coded Allergies: NO KNOWN ALLERGIES (06/13/15) Reconcile Medications Citalopram Hydrobromide (Citalopram HBr) 20 MG TABLET 1 TAB PO DAILY ANXIETY (Reported) Doxycycline Hyclate 100 MG TABLET 1 TAB PO BID cellulitis Iron Carb,Gl/FA/B12/C/Docusate (Ferralet 90 Tablet) 90 MG-1 MG-12 MCG-120 MG-50 MG TABLET 1 TAB PO DAILY SUPPLEMENT (Reported) Ketorolac Tromethamine 10 MG TABLET 1 TAB PO TID PAIN RECEIVED IM IN ER Lidocaine (Anecream5) 5 % CREAM..G. 1 YOVANI RC BID PRN HEMMORROIDS Triage Note: PT TO ER C/C ?ABSCESS TO BACK OF RIGHT LEG X 1 DAY. STATES AREA RAISED AND WARM TO TOUCH Triage Nurses Notes Reviewed? yes Onset: Abrupt Duration: day(s):, constant Timing: recent history Severity: moderate, severe Pain/Injury Location: Right: Leg. No Modifying Factors: none : No Patient currently breastfeeds: No HPI: 26-year-old female comes into the emergency room for further evaluation of redness and pain to the back of her right leg. Patient reports that she thinks she got bit by something. She has increased redness swelling. She comes in for further evaluation. Denies any other associated symptoms. (Keo Mock) Past History Travel History Traveled to [place] past 21 day No Medical History Any Pertinent Medical History? 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 No (Keo Mock) Review of Systems Review of Systems Constitutional: Reports: no symptoms. EENTM: Reports: no symptoms. Respiratory: Reports: no symptoms. Cardiovascular: Reports: no symptoms. Gastrointestinal/Abdominal: Reports: no symptoms. Genitourinary: Reports: no symptoms. Musculoskeletal: Reports: no symptoms. Skin: Reports: see HPI. Neurological/Psychological: Reports: no symptoms. Hematologic/Endocrine: Reports: no symptoms. Immunological: Reports: no symptoms. All Other Systems: Reviewed and Negative (Keo Mock) Physical Exam Physical Exam General Appearance: well developed/nourished, mild distress Head: atraumatic Eyes: Bilateral: normal appearance. Ears, Nose, Throat: normal ENT inspection, hearing grossly normal Neck: normal inspection Cardiovascular/Respiratory: no respiratory distress Back: normal inspection Leg Right: 6 X 6 CM, ERYTHEMATOUS PATCH RIGHT POSTERIOR THIGH, RAISED, WARM TO TOUCH Neurologic/Tendon: normal sensation, normal motor functions, normal tendon functions Skin: intact, normal color, warm/dry (Keo Mock) Progress Differential Diagnosis: cellulitis, contusion, fracture, septic arthritis Plan of Care: 06/04/2017 10:13:15 PM Patient clinically looks well. Patient is in no apparent distress. Patient is nontoxic-appearing. Consistent with a cellulitis. Treated symptomatically. (Keo Mock) Departure Departure Disposition: HOME OR SELF CARE Condition: Stable Clinical Impression Primary Impression: Cellulitis of right thigh Referrals: Diana Collins DO (PCP/Family) Additional Instructions: Take doxycycline as prescribed. Have recheck in 3-5 days for worsening symptoms. Return if any other concerns. Please go over all results of today's visit with your primary care doctor. Contact your primary care doctor to let them know you were here in the emergency room. There may be nonspecific findings which may not be related to your visit today here in the emergency room but may require further evaluation and chronic monitoring by your primary care doctor. If you had a laceration today the chance of foreign body always remains. You should follow-up with your primary care doctor for recheck in 3-5 days for a wound check. If you had an x-ray done there is a chance that a fracture could have been missed on initial read and you should follow-up with your primary care doctor for repeat x-rays if symptoms persist. If your blood pressure was elevated here in the emergency room please have rechecked by jorge primary care doctor within the next 48. If you were prescribed a narcotic here in the emergency room or any type of controlled substances you're not allowed to drive while taking this medication or operate any type of heavy machinery. Narcotics can make you feel lightheaded dizziness nausea and can cause constipation. You may need to sweet pickle maker a stool softener. Thank you for choosing [facility] emergency room. Please return to the emergency room immediately if you have any other concerns worsening of symptoms. Departure Forms: Customer Survey General Discharge Information Prescriptions: Current Visit Scripts Doxycycline Hyclate 1 TAB PO BID #20 TAB (Keo Mock) PA/CREPE MAKER Co-Sign Statement Statement: ED Attending supervision documentation- I saw and evaluated the patient. I have also reviewed all the pertinent lab results and diagnostic results. I agree with the findings and the plan of care as documented in the PA's/CREPE MAKER's documentation. x I have reviewed the ED Record and agree with the PA's/CREPE MAKER's documentation. [] Additions or exceptions (if any) to the PAs/CREPE MAKER's note and plan are summarized below: [] (Crow COLBY,Marques)
== END 2017-06-04 22:08 ==
LOC: ERH 20:10
DX: L03.115 Cellulitis of right lower limb (principal)